=== PATIENT | male | born 1975 | race Caucasian/White ===

== ENCOUNTER 2017-03-28 15:07 | Inpatient (IN) | payer MEDICARE, MEDICAID ==
--- NOTE | 2017-03-28 15:33 | ED ---
General Adult HPI - General Chief complaint: Psychiatric Symptoms Stated complaint: hand lac/psych med check Time Seen by Provider: 03/28/17 15:21 Source: patient, RN notes reviewed Mode of arrival: ambulatory Limitations: no limitations - History of Present Illness Initial comments: The patient is a 41-year-old male who presents emergency room today with chief complaint of laceration to the left thumb that occurred earlier today. He does admit that he cut it on a glass bottle. Patient states that he was at [facility] talking to his cigar head puncher who brought him here to the emergency room. Patient states he does not want have a tetanus shot. He states he "does not believe in it". Patient denies any homicidal, suicidal thoughts or plans. His cigar head puncher was hoping to have him evaluate by psych to have medications possibly adjusted. Patient states he does not want be evaluated by psych. Patient denies any other complaints or symptoms. Patient denies any recent fever, chills, shortness of breath, chest pain, back pain, abdominal pain, nausea or vomiting, numbness or tingling, dysuria or hematuria, constipation or diarrhea, headaches or visual changes, or any other complaints. - Related Data Home Medications Medication Instructions Recorded Confirmed cloZAPine [Clozaril] 100 mg PO HS 03/28/17 03/28/17 fluPHENAZine DECANOATE [Prolixin 50 mg IM Q7D 03/28/17 03/28/17 Decanoate] Allergies Allergy/AdvReac Type Severity Reaction Status Date / Time clozapine [From Clozaril] Allergy Unknown Verified 03/28/17 15:19 paliperidone [From Invega] Allergy Unknown Verified 03/28/17 15:19 Review of Systems ROS Statement: Those systems with pertinent positive or pertinent negative responses have been documented in the HPI. ROS Other: All systems not noted in ROS Statement are negative. Past Medical History Past Medical History: Unable to Obtain Additional Past Medical History / Comment(s): Pt uncooperative /c Admission, refused to give info. History of Any Multi-Drug Resistant Organisms: None Reported, Unobtainable Past Surgical History: Unable to Obtain Additional Past Surgical History / Comment(s): Pt uncooperative /c Admission, refused to give info. Past Anesthesia/Blood Transfusion Reactions: Unable to Obtain Additional Past Anesthesia/Blood Transfusion Reaction / Comment(s): Pt uncooperative /c Admission, refused to give info. Past Psychological History: Bipolar, Schizoaffective Disorder Smoking Status: Former smoker Past Alcohol Use History: Daily Past Drug Use History: Unable to Obtain General Exam - General Exam Comments Initial Comments: General: The patient is awake and alert, in no distress, and does not appear acutely ill. Neck: The neck is supple, there is no tenderness or JVD. Cardiovascular: There is a regular rate and rhythm. No murmur, rub or gallop is appreciated. Respiratory: Lungs are clear to auscultation, respirations are non-labored, breath sounds are equal. No wheezes, stridor, rales, or rhonchi. Musculoskeletal: Full range of motion. Sensation intact. Pulses equal bilaterally 2+ per strength 5/5. Neurological: A&O x 3. CN II-XII intact, There are no obvious motor or sensory deficits. Coordination appears grossly intact. Speech is normal. Skin: Skin is warm and dry and no rashes or lesions are noted. Limitations: no limitations Course Vital Signs 03/28/17 15:17 Temperature 97 F L Pulse Rate 83 Respiratory 16 Rate Blood Pressure 134/98 O2 Sat by Pulse 97 Oximetry - Reevaluation(s) Reevaluation #1: 03/28/17 15:43 Patient's cigar head puncher at bedside and states that she would like him to be evaluated by psych services. She is willing to petition the patient. At this time patient is agreeable to wait for evaluation. Medical Decision Making - Medical Decision Making Patient has been evaluated here in the emergency room by mental health. They do recommend admission. Patient has been petitioned by his cigar head puncher and physician Cert was performed by ER attending Dr Mosley. - Lab Data Lab Results 03/28/17 Range/Units 15:50 Urine Opiates Screen Not Detected (NotDetected) Ur Oxycodone Screen Not Detected (NotDetected) Urine Methadone Screen Not Detected (NotDetected) Ur Propoxyphene Screen Not Detected (NotDetected) Ur Barbiturates Screen Not Detected (NotDetected) U Tricyclic Antidepress Not Detected (NotDetected) Ur Phencyclidine Scrn Not Detected (NotDetected) Ur Amphetamines Screen Not Detected (NotDetected) U Methamphetamines Scrn Not Detected (NotDetected) U Benzodiazepines Scrn Not Detected (NotDetected) Urine Cocaine Screen Not Detected (NotDetected) U Marijuana (THC) Screen Detected H (NotDetected) Disposition Clinical Impression: Laceration, Schizoaffective disorder Disposition: TRANSFER TO PSYCH HOSP/UNIT Condition: Stable Additional Instructions: Please watch for signs of infection. Please return to the emergency room for any other concerns or complications. Referrals: Bryan Joseph MD [Primary Care Provider] - 1-2 days Time of Disposition: 17:12
[2017-03-28] MEDS ORDERED: LORazepam 1 MG TAB PO PRN (18:15)
[2017-03-28] MEDS ORDERED: ACETAMINOPHEN TAB 325 MG TAB PO PRN (18:15)
[2017-03-28] MEDS ORDERED: MAGNESIUM HYDROXIDE 2,400 MG/10 ML CUP PO PRN (18:15)
[2017-03-28] MEDS ORDERED: ZIPRASIDONE 20 MG VIAL IM PRN (18:15)
[2017-03-28] MEDS ORDERED: MAG HYDROX/AL HYDROX/SIMETH 30 ML CUP PO PRN (18:15)
[2017-03-28] MEDS: TRIHEXYPHENIDYL 2 MG TAB PO SCH (20:50)
[2017-03-29] MEDS ORDERED: MENTHOL (NICE) LOZENGE MUCOUS MEM PRN (08:26)
[2017-03-29 08:33] LABS: Basophils % (A) 0 %; CH 29.7; CHCM 33.8; Eosinophils # (A) 0.1 k/uL (0-0.7); Eosinophils % (A) 1 %; HCT 47.7 % (39.0-53.0); HDW 2.62; HGB 16.1 gm/dL (13.0-17.5); Luc % (Auto) 2; Lymphocytes # (A) 2.3 k/uL (1.0-4.8); Lymphocytes % (A) 23 %; MCH 29.7 pg (25.0-35.0); MCHC 33.7 g/dL (31.0-37.0); MCV 88.2 fL (80.0-100.0); Mean Platelet Volume 6.6; Monocytes # (A) 0.5 k/uL (0-1.0); Monocytes % (A) 5 %; Neutrophils % (A) 69 %; RDW 11.7 % (11.5-15.5); WBC 10.1 k/uL (3.8-10.6); WBC (Perox) 9.63
[2017-03-29 08:35] LABS: ALT 46 U/L (21-72); AST 23 U/L (17-59); Alkaline Phosphatase 59 U/L (38-126); Anion Gap 12 mmol/L; Bilirubin, Delta 0.1 mg/dL (0.0-0.2); Blood Urea Nitrogen 12 mg/dL (9-20); Calcium 9.2 mg/dL (8.4-10.2); Carbon Dioxide 26 mmol/L (22-30); Chloride 102 mmol/L (98-107); Glucose 90 mg/dL (74-99); Non-African American GFR(MDRD) >60 (>60 ml/min/1.73 sqM); Potassium 4.9 mmol/L (3.5-5.1); Sodium 140 mmol/L (137-145); Total Bilirubin 0.2 mg/dL (0.2-1.3); Total Protein 7.1 g/dL (6.3-8.2)
[2017-03-29] MEDS: TRIHEXYPHENIDYL 2 MG TAB PO SCH ×2 (09:04→20:25)
--- NOTE | 2017-03-29 15:02 | HP ---
HISTORY AND PHYSICAL DATE OF SERVICE: 03/29/2017 IDENTIFYING DATA: This patient is a 41-year-old, single male, who was admitted to the mental health unit through the emergency room on a petition for acute symptoms of psychosis and agitated behavior. HISTORY OF PRESENT ILLNESS: The patient presents with a petition completed by his [facility] logging truck driver stating "while in [facility] today yelled Dr. Mosley needs to and profanities." Justice through a glass bottle in [facility] and cut his hand. He yelled at Legal Manager in [facility], in vehicle, then jumped out of vehicle while still moving. Staff questioning whether Fortunato is taking his Clozaril. Justice has stated he has been using crack cocaine two weeks prior. The patient is well known to this service, he has a history of numerous prior admissions. He does carry a diagnosis of schizoaffective disorder, bipolar type. The patient states that he does not understand why Dr. Mosley would prescribe Clozaril to him when it is "so bad for my body." He states that he has had anxiety running up and down his arms. He has felt agitated and is too sleepy because of the Clozaril. At this point, he is refusing to take it. Clearly, the patient presented with symptoms of agitation and feeling persecuted. Today he denies having all symptoms and would like to be discharged today. He has been compliant with getting Prolixin injections 50 mg every week. He states he would like to continue on that medication alone and refuses anything additional. He is reporting no suicidal or homicidal thoughts. He is endorsing no racing thoughts. He endorses no auditory or visual hallucinations. He endorses no delusional content. The patient is not a valid historian. PAST PSYCHIATRIC HISTORY: The patient has had numerous inpatient psychiatric admissions. The last on this unit was May of 2014 under the care of Dr. Nuñez. He has been admitted to other facilities. He is engaged in outpatient services with [facility]. Again, he is on Prolixin Decanoate as noted. He has been on Risperdal Consta, Invega Sustenna. He does not recall if he has been on Abilify Maintena. He endorses no history of suicide attempts. PAST MEDICAL HISTORY: None reported. ALLERGIES: He states INVEGA and although not a true allergic reaction, he would like to list CLOZARIL as an allergy. CHEMICAL DEPENDENCY HISTORY: He reports using no alcohol. He has been using marijuana, but states he quit last week. It was in his urine drug screen. There is record of him using cocaine 2 weeks ago. He states that was a single use and he does not intend to use it again. He has never been placed in residential treatment for chemical dependency reasons. FAMILY PSYCHIATRY HISTORY: Unknown. FAMILY CHEMICAL DEPENDENCY HISTORY: Unknown. SOCIAL HISTORY: The patient is 41 years old. He is single, he has no children. He resides alone in an apartment. His mother and Mr. Jak Gonzalez are co-guardians. The patient has a high school education. He currently is on a social security disability income. No abuse history previously documented. LEGAL HISTORY: Unknown. STRENGTHS: Income, housing, support from guardians. WEAKNESSES: Noncompliance with medications. Acute symptoms of psychosis and packing psychosocial function. Intellect average. MENTAL STATUS EXAM: The patient is a male, appearing his stated age. He is dressed in oversize clothing. He has a disheveled appearance. His hair is not combed, his suero is unkempt. Eye contact is appropriate. Speech is fluent. He is mildly pressured at times. He is demonstrative when speaking in terms of speaking. He reports feeling frustrated. Affect is irritable. He is not a valid historian. He is minimizing symptoms and under reporting. He denies having any symptoms of psychosis or racing thoughts. He presents appearing to have paranoid and persecutory thoughts. Chronically, he has mandaen preoccupation but does not speak of that today. Insight and judgment are impaired. We were unable to pursue any cognitive testing today. He is oriented to person and place. He demonstrates no verbal or physical aggressiveness during the session No abnormal involuntary movements observed. IMPRESSION: 1. Schizoaffective disorder, bipolar type. Rule out cannabis use disorder. 2. Psychosocial dysfunction due to acute symptoms of psychosis. PLAN: The patient has been admitted to the mental health unit involuntarily. I have completed a second clinical certificate. He is still being offered his Clozaril, Artane but he is refusing the medication. He does received Prolixin and Decanoate. It appears that is due again early next week. He is not amenable to other medications suggestions today. We will need to confer with Dr. Mosley his outpatient psychiatrist regarding possible medication changes. The patient will be seen by Internal Medicine for routine history and physical exam. Social Work will meet with the patient to complete a psychosocial assessment. We will monitor him for safety. Encourage his participation in the milieu. We will provide reality orientation when possible. LANDON / RAD: [id number] /
[2017-03-29] MEDS ORDERED: cloZAPine 100 MG TAB PO SCH (21:00)
[2017-03-30] MEDS: TRIHEXYPHENIDYL 2 MG TAB PO SCH ×2 (08:45→20:41)
[2017-03-30] MEDS: AMOXIC-POT CLAV 875-125MG 1 EACH TAB PO SCH ×3 (11:27→21:53)
--- NOTE | 2017-03-30 11:45 | HP ---
HISTORY AND PHYSICAL DATE OF ADMISSION: 03/28/17 CHIEF COMPLAINT: Depression and schizoaffective disorder. HISTORY OF PRESENT ILLNESS: This is a 41-year-old male with history of psychiatric disorder including schizoaffective disorder, depression, anxiety, presents to the hospital with worsening symptoms. Patient is noncompliant with his medication, was admitted to the psych floor for further evaluation. Currently, he is complaining of right ear pain that started a couple days ago and seems like it is getting worse. Patient denies fever or chills, recent upper respiratory infection and stated that he never had ear infection before. REVIEW OF SYSTEMS: All 14 systems reviewed and negative except as above. HOME MEDICATION: Reviewed and confirmed with the patient. The patient is not compliant with his medications, not taking anything at this point. PAST MEDICAL HISTORY: 1. Schizoaffective disorder. 2. Anxiety. 3. Depression. ALLERGIES: INVEGA. CLOZARIL. FAMILY HISTORY: Reviewed and negative. SOCIAL HISTORY: Patient denies alcohol, tobacco, or drug abuse but his urine drug screen showed marijuana. PHYSICAL EXAMINATION: Vital signs reviewed and stable. General as his stated age. No acute distress. HEENT positive for right ear membrane bulging and redness and normal otherwise examination. NECK: Supple. No masses. No thyromegaly. Heart normal S1, S2. LUNGS: Clear to auscultation bilaterally. ABDOMEN: Soft, nontender, soft bowel sounds all 4 quadrants. Lower extremity no edema. Neuro/psych: Alert, oriented x3, no focal deficits. Cranial nerves 2-12 intact. IMAGING AND LABS: CBC showed normal finding. Chemistry showed normal findings. Liver function tests within normal limits. Urine drug screen was positive for marijuana. ASSESSMENT AND PLAN: 1. Right otitis media. I would like to start Augmentin 875 twice daily for 7 days and follow up the patient clinically. 2. Schizoaffective disorder per your recommendation. 3. Marijuana abuse. We will consult the patient regarding cessation during this hospital stay. MMODL / IJN: [id number] /
--- NOTE | 2017-03-30 15:42 | P.PN ---
Progress Note - Text Interval history: The patient is found in the hallway he follows me to an interview room. He reports his mood is stable he asked to be discharged today. He again lacks insight into his symptoms of psychosis precipitating this admission. He states he does not want to claws role offered to him again as he will never take it. I tried to engage in a conversation regarding the claws role highlighting its benefits. We discussed that he will require some medication change but he is refusing at this time. He feels he was doing well with just the Prolixin injections. Mental status exam: The patient is a male he is quite disheveled he is wearing the same oversize clothing. Hygiene grooming impaired. His fingernails are noticeably dirty. Eye contact is appropriate. He frequently changes position while seated in the chair. He does have spontaneous speech is nonpressured today. He continues to underreport symptoms he denies having any symptoms of psychosis. He obviously lacks insight into the need for medication adjustment and continued hospitalization. He demonstrates no verbal or physical aggressiveness. Affect is constricted. He is reporting no suicidal or homicidal ideation. Plan: The patient will continue on his current medications. He is not amenable to continuing use of claws role. We will need to have a discussion with his outpatient psychiatrist regarding possibilities. The patient is willing to continue the Prolixin decanoate. Vital signs reviewed. He is encouraged to participate in the milieu we will monitor him for safety.
[2017-03-30 16:19] LABS: Appearance,Urine Clear (Clear); Bilirubin,Urine Negative (Negative); Glucose,Urine (UA) Negative (Negative); Ketones,Urine Negative (Negative); Leukocyte Esterase,Urine Negative (Negative); Nitrite,Urine Negative (Negative); PH, Urine 6.5 (5.0-8.0); Protein,Urine Negative (Negative); Specific Gravity,Urine 1.005 (1.001-1.035); UA Billing (MACRO vs. MICRO) CHEM; Urobilinogen,Urine <2.0 mg/dL (<2.0)
[2017-03-31 09:10] LABS: Norclozapine <25 ng/mL (200-700)
[2017-03-31] MEDS: TRIHEXYPHENIDYL 2 MG TAB PO SCH ×2 (09:31→20:22)
[2017-03-31] MEDS: AMOXIC-POT CLAV 875-125MG 1 EACH TAB PO SCH ×2 (09:32→21:18)
--- NOTE | 2017-03-31 12:00 | P.PN ---
Progress Note - Text Interval History: Patient is a 41-year-old male who was seen today after being admitted on a petition due to becoming upset in the [employer] cutting his hand and bleeding over the produce in the store. Patient has apparently not been eating well at home, only eating fruit and vegetables feeling that other foods were being poisoned. Patient had recently been started on Prolixin and Clozaril. Patient was begun on Clozaril the beginning of February but recently he states that he has not been taking it due to its wearing him out and he feels like he is dying on it. He also reported to me that the spirits were leaving his body. Patient denied any auditory or visual hallucinations and denied any paranoid ideation. He denied arguing with his medical case manager and also states that he had not threatened doctor at the clinic as he had not been there to see him for the last week and half. Patient states that he used cocaine 2 weeks ago and used marijuana 2 weeks ago but through his pipe out. Patient states that he will not restart the Clozaril. Patient has been living on his own. Patient is also part of the act team Mental Status: Appearance/Attitude: Patient's close are soiled, makes intermittent eye contact and is cooperative. Behavior: Patient does not display any psychomotor agitation or retardation. Speech/Language: Patient's speech is nonspontaneous, he responds only to my questions and he is coherent. Thought Process: Patient is goal-directed there is no evidence of circumstantial or tangential thought looses associations or flight of ideas. Thought Content: Patient denies any current auditory or visual hallucinations and no paranoid or delusional ideation was elicited. Patient states that he has not been taking the Clazuril because it made him feel like he was dying and wearing him out as well as he told me that the spirits were leaving his body and was affecting his left arm. Patient states that he is sleeping fine. Suicidal/Homicidal Ideation: Patient denies any current suicidal or homicidal ideation. Sensorium/Cognition: Patient is alert and oriented to person, place, time and his memory is grossly intact. Mood/Affect: Patient's mood was restricted and his affect was blunted. Insight/Judgement: Patient's insight and judgment are poor. Assessment: Patient was admitted due to not taking his closet role as well as having some paranoid ideation regarding his food being poisoned. Patient is refusing to continue with Clozaril but states that the Prolixin is fine. Patient has been receiving Prolixin to Bev 50 mg weekly since March 01 been on Risperdal Consta prior to that. Patient complaining that the Clazuril caused him to feel like he is dying in the spirits were leaving his body. Patient has not been hospitalized since 2013 and in team treatment meeting his medication history was reviewed. Plan: I will not patient will continue on Prolixin Decanoate 50 mg his next injection is due tomorrow, he is refusing to take Clozaril and Artane. From reviewing his medication history from [facility] but appears that patient has not been tried on Abilify will discuss with patient if this is something he wishes to consider.Patient requires hospitalization to treat his psychotic symptoms.
[2017-04-01] MEDS: AMOXIC-POT CLAV 875-125MG 1 EACH TAB PO SCH ×2 (08:57→20:51)
[2017-04-01] MEDS: TRIHEXYPHENIDYL 2 MG TAB PO SCH (08:59)
[2017-04-01] MEDS ORDERED: fluPHENAZine DECANOATE 25 MG/ML 5ML MDV IM SCH (09:00)
--- NOTE | 2017-04-01 13:37 | P.PN ---
Progress Note - Text Interval History: Patient is a 41-year-old male who was seen today and he reports that he was is doing fine. He reports that he got upset in the store due to staff asking him to buy things that he doesn't like to eat. Patient states that he does not wish to restart the Clozaril. Patient admitted to me that he had not been taking the evening dose of the Clozaril. Patient requested that the evening dose of Artane be discontinued because it made him too anxious last evening. Patient states that he would take Zyprexa but would not consider any other medication. Mental Status: Appearance/Attitude: Patient was dressed in a hospital gown, at times stares intently and is cooperative. Behavior: Patient does not display any psychomotor agitation or retardation. Speech/Language: Patient's speech is spontaneous, normal volume and rhythm and he is coherent. Thought Process: Patient is goal-directed, no evidence of loose associations. Thought Content: Patient denies any auditory or visual hallucinations and no delusions or paranoid ideation could be elicited. Patient reported that he felt anxious and couldn't sleep well last evening and feels it was secondary to the Artane. Patient reported that he is appetite is good. Suicidal/Homicidal Ideation: Patient denies any current suicidal or homicidal ideation. Sensorium/Cognition: Patient is alert and oriented to person, place, time and his memory is grossly intact. Mood/Affect: Patient's mood is restricted and his affect is blunted Insight/Judgement: Patient's insight and judgment are fair to poor Assessment: Patient and I discussed his lack of compliance with medication and he agreed that he had not been taking the evening doses of Clozaril because he did not like the way it made him feel. Patient and I also discussed his reaction in the grocery store when he felt he was being pressured by case management to buy food that he didn't want to eat. Patient complained of side effects from Olivia taking Artane at bedtime and states that he will only consider the addition of Zyprexa to his medication. Plan: Patient will continue on Prolixin to [place] 50 mg and will receive a dose today, he is receiving this on a weekly basis. His Artane was reduced to 5 mg in the morning at the patient's request. Patient will start Zyprexa Zydis 5 mg at 5 PM to see how he does with the medication and he discussed this with the liaison from [facility] and was agreeable to this plan. Will observe the patient for several days and consider discharge should he tolerate the Zyprexa Zydis without side effects. Patient was agreeable with this plan.
[2017-04-01] MEDS: OLANZapine ODT 5 MG TAB PO SCH (16:41)
[2017-04-02] MEDS: TRIHEXYPHENIDYL 2 MG TAB PO SCH (08:11)
[2017-04-02] MEDS: AMOXIC-POT CLAV 875-125MG 1 EACH TAB PO SCH ×2 (08:11→20:02)
--- NOTE | 2017-04-02 13:12 | P.PN ---
Progress Note - Text Interval History: Patient is a 41-year-old male who was seen today and reports that he slept better last evening. Patient reports no side effects from the Zyprexa that he took yesterday late afternoon. He states that he is not hearing voices denies any paranoid ideation and states he is not feeling suicidal. Patient states that he is spending time in his room and has not been attending groups or activities. Mental Status: Appearance/Attitude: Patient is dressed in a hospital gown, makes good eye contact and is cooperative. Behavior: Patient does not display any psychomotor agitation or retardation. Speech/Language: Patient's speech is spontaneous, normal volume and rhythm and is coherent. Thought Process: Patient is goal directed, and there is no evidence of circumstantial or tangential thought loose associations or flight of ideas. Thought Content: Patient denies any auditory or visual hallucinations and no paranoid or delusional ideation was elicited. Patient states that he is sleeping and eating well and states with the Zyprexa he slept better last evening. Patient reports he is staying in his room and reports no side effects from his medication. Suicidal/Homicidal Ideation: Patient denies any current suicidal or homicidal ideation. Sensorium/Cognition: Patient is alert and oriented to person, place, and time and his memory is grossly intact Mood/Affect: Patient's mood is restricted and his affect is blunted. Insight/Judgement: Patient's insight and judgment are limited. Assessment: Patient took the Zyprexa Zydis yesterday late afternoon reports that he slept better, he is denying any auditory hallucinations no delusions were elicited. Patient states that he is staying in his room as he does not want to attend groups or activities. Patient continues to ask when he will be discharged. Patient is not reporting any side effects from the medication. Plan: Patient received Prolixin to [place] 50 mg IM on April 01 and continues on Artane 5 mg in the morning and Zyprexa Zydis 5 mg at 5 PM. Patient can be discharged and several days.
[2017-04-02] MEDS: OLANZapine ODT 5 MG TAB PO SCH (16:38)
[2017-04-03 06:54] VITALS: BP 127/72; PULSE 86; RESP 18; TEMP 97.5
[2017-04-03] MEDS: AMOXIC-POT CLAV 875-125MG 1 EACH TAB PO SCH (07:56)
[2017-04-03] MEDS: TRIHEXYPHENIDYL 2 MG TAB PO SCH (07:56)
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
[2017-04-03] MEDS: OLANZapine ODT 5 MG TAB PO SCH (16:06)
== END 2017-04-03 16:19 | disposition home or self-care (01) | DRG 885 ==
LOC: EC 15:07 → EEVIPCON 15:07 → 3MHU 18:12
PROVIDERS: ADMIT Psychiatry & Neurology Psychiatry; ATTEND Psychiatry & Neurology Psychiatry
DX: F25.0 Schizoaffective disorder, bipolar type (principal); Z91.14 Patient's other noncompliance with medication regimen; F41.9 Anxiety disorder, unspecified; H66.91 Otitis media, unspecified, right ear; F12.10 Cannabis abuse, uncomplicated; S61.012A Laceration without foreign body of left thumb without damage to nail, initial encounter; Z79.899 Other long term (current) drug therapy; Z88.8 Allergy status to other drugs, medicaments and biological substances; Z87.891 Personal history of nicotine dependence
CPT/HCPCS: 80053; 80159; 80306; 81003; 82075; 82248; 84443; 85025; 99285

== ENCOUNTER 2018-12-03 20:56 | Emergency (ER) | payer MEDICARE, OTHER ==
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
[2018-12-03 23:09] VITALS: BP 140/95; PULSE 75; RESP 18; TEMP 98
== END 2018-12-03 23:09 | disposition home or self-care (01) ==
LOC: EC 20:56
DX: S01.81XA Laceration without foreign body of other part of head, initial encounter (principal); F17.200 Nicotine dependence, unspecified, uncomplicated; Z88.8 Allergy status to other drugs, medicaments and biological substances; Y00.XXXA Assault by blunt object, initial encounter; Y92.009 Unspecified place in unspecified non-institutional (private) residence as the place of occurrence of the external cause
CPT/HCPCS: 12013; 99283

== ENCOUNTER 2021-03-16 15:59 | Inpatient (IN) | payer MEDICARE ==
--- NOTE | 2021-03-16 16:52 | ED ---
General Adult HPI - General Chief complaint: Psychiatric Symptoms Stated complaint: Mental Health-petition Time Seen by Provider: 03/16/21 16:40 Source: patient Mode of arrival: ambulatory Limitations: no limitations - History of Present Illness Initial comments: Dictation was produced using [employer] dictation software. please excuse any grammatical, word or spelling errors. 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 There was allegedly pickup order regarding the patient. Patient was in the has been agitated and making suicidal statements. He supposedly owns a firearm. Patient denies any complaints at this time. He is not suicidal or homicidal. No visual auditory hallucinations. Patient's [place] has psychiatric history. The ROS documented in this emergency department record has been reviewed and confirmed by me. Those systems with pertinent positive or negative responses have been documented in the HPI. All other systems are other negative and/or noncontributory. PHYSICAL EXAM: General Impression: Alert and oriented x3, not in acute distress HEENT: Normocephalic atraumatic, extra-ocular movements intact, pupils equal and reactive to light bilaterally, mucous membranes moist. 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 Vital signs upon arrival are within acceptable limits. Patient evaluated by EPS and will be admitted to inpatient psychiatry. - Related Data Previous Rx's Medication Instructions Recorded Amoxic-Pot Clav 875-125Mg 1 each PO Q12HR #5 tab 04/03/17 [Augmentin 875-125] OLANZapine ODT [ZyPREXA Zydis] 5 mg PO DAILY@1700 #14 tab 04/03/17 Trihexyphenidyl [Artane] 5 mg PO DAILY #35 tab 04/03/17 fluPHENAZine decanoate [Prolixin 50 mg IM Q7D 7 Days 04/03/17 Decanoate] Allergies Allergy/AdvReac Type Severity Reaction Status Date / Time clozapine [From Clozaril] Allergy Unknown Verified 03/16/21 16:34 paliperidone [From Invega] Allergy Unknown Verified 03/16/21 16:34 Review of Systems ROS Statement: Those systems with pertinent positive or pertinent negative responses have been documented in the HPI. ROS Other: All systems not noted in ROS Statement are negative. Past Medical History Past Medical History: No Reported History Additional Past Medical History / Comment(s): denies History of Any Multi-Drug Resistant Organisms: None Reported Past Surgical History: No Surgical Hx Reported Additional Past Surgical History / Comment(s): Pt uncooperative /c Admission, refused to give info. Past Anesthesia/Blood Transfusion Reactions: Unable to Obtain Additional Past Anesthesia/Blood Transfusion Reaction / Comment(s): Pt uncooperative /c Admission, refused to give info. Past Psychological History: Bipolar, Schizoaffective Disorder Smoking Status: Former smoker Past Alcohol Use History: Daily Past Drug Use History: Cocaine General Exam Limitations: no limitations Course Vital Signs 03/16/21 16:31 Temperature 98.1 F Pulse Rate 90 Respiratory 16 Rate Blood Pressure 118/79 O2 Sat by Pulse 95 Oximetry Medical Decision Making - Lab Data Lab Results 03/16/21 03/16/21 Range/Units 17:24 17:24 Urine Opiates Screen Not Detected (NotDetected) Ur Oxycodone Screen Not Detected (NotDetected) Urine Methadone Screen Not Detected (NotDetected) Ur Propoxyphene Screen Not Detected (NotDetected) Ur Barbiturates Screen Not Detected (NotDetected) U Tricyclic Antidepress Not Detected (NotDetected) Ur Phencyclidine Scrn Not Detected (NotDetected) Ur Amphetamines Screen Not Detected (NotDetected) U Methamphetamines Scrn Not Detected (NotDetected) U Benzodiazepines Scrn Not Detected (NotDetected) Urine Cocaine Screen Not Detected (NotDetected) U Marijuana (THC) Screen Detected H (NotDetected) Coronavirus (PCR) Not Detected (Not Detectd) Disposition Clinical Impression: Suicidal ideation Disposition: ADMITTED IP TO THIS HOSP Condition: Fair Referrals: None,Stated [Primary Care Provider] - 1-2 days
[2021-03-16 17:59] LABS: Amphetamine Screen,Urine Not Detected (NotDetected); Barbiturate Screen,Urine Not Detected (NotDetected); Benzodiazepines Screen,Urine Not Detected (NotDetected); Cocaine Screen,Urine Not Detected (NotDetected); Methadone Screen, Urine Not Detected (NotDetected); Opiate Screen,Urine Not Detected (NotDetected); Oxycodone Screen, Urine Not Detected (NotDetected); Phencyclidine Screen,Urine Not Detected (NotDetected); Tricyclic Antidepressant,Urine Not Detected (NotDetected); Urn Cannabinoid Scrn Detected (NotDetected)
[2021-03-16] MEDS ORDERED: LORazepam 1 MG TAB PO PRN (20:09)
[2021-03-16] MEDS ORDERED: MAG HYDROX/AL HYDROX/SIMETH 30 ML CUP PO PRN (20:09)
[2021-03-16] MEDS ORDERED: ACETAMINOPHEN TAB 325 MG TAB PO PRN (20:09)
[2021-03-16] MEDS ORDERED: MAGNESIUM HYDROXIDE 2,400 MG/10 ML CUP PO PRN (20:09)
[2021-03-16] MEDS ORDERED: LORazepam 2 MG/ML INJ IM PRN (20:14)
[2021-03-17] MEDS: NICOTINE 14MG/24HR PATCH TRANSDERM SCH (08:30)
--- NOTE | 2021-03-17 11:19 | P.HP ---
Psychiatric H&P - . H&P Date: 03/17/21 History & Physical: IDENTIFYING DATA: German is a 45-year-old single male who has a chronic and persistent mental illness. HISTORY OF PRESENT ILLNESS: The Sales And Marketing Manager's Department brought him to the [facility] [place] for noncompliance under a continuing order for mental health treatment. On the accompanying noncompliance form his pillowcase turner wrote: "Justice has been increasingly agitated. He is not caring for his hygiene. Per medical radiation therapist. Dr. Mosley Justice should be picked up for screening for admission as he is agitated to the point of making threats to "cut his head off" or shoot him. Justice believes that he is not mentally ill but rather he is cursed he does not need medications." According to the patient obtained by the EPS nurse, he was with the ACT team yesterday and made threats to get a gun and kill the staff." Alicia from the ACT team said that he was acting unhinged yesterday. Note that he does not own a gun and does not have access to a firearm. Justice would not get out of bed for the interview but otherwise was pleasant and cooperative. He explained that he was upset with his public guardian because the guardian had not returned his telephone calls. He acknowledged it was angry but expects requests over how he expressed his anger. He denied that he he had intended to harm staff or his guardian. His only other concern was discharge. He would not talk about such psychotic symptoms such as hallucinations, paranoia, delusional beliefs or thought disturbances (ideas reference, thought insertion, thought broadcasting etc.). He denied feeling depressed or having thoughts of or suicide. He denied use of drugs with the exception of marijuana. He denied daily marijuana use because she cannot afford to use marijuana daily. He denied use of alcohol. His UDS was positive only for marijuana and his breath alcohol was 0 on presentation to the ED. PAST PSYCHIATRIC HISTORY: He has a history of a schizoaffective schizophrenia disorder with multiple hospitalizations and treatment with various antipsychotic medications including clozapine. He is enrolled in the ACT program due to the chronicity and severity of his mental illness. He is currently treated with Prolixin 50 mg IM weekly due to the history of noncompliance with psychotropic medications. According to medical record and he has had at least 50 prior psychiatric hospitalizations. PAST MEDICAL HISTORY: He has no history of major medical problems ALLERGIES: He reports clozapine and paliperidone is how she suspect these are not true ALLERGIES; rather adverse reactions. SUBSTANCE USE HISTORY: He is guarded about his substance use history. The medical record notes history of use of marijuana and alcohol. He smokes tobacco. FAMILY PSYCHIATRIC/SUBSTANCE USE HISTORY: Unknown LEGAL HISTORY: He denied any legal problems SOCIAL HISTORY: He is single and has no children. He resides alone in an apartment. He has legal guardian. He is unemployed and receives social security disability MENTAL STATUS EXAM: He presented as a large 45-year-old male who was irritable and minimally cooperative. He would not get out of bed for the interview. He made eye contact and appeared to attend to the exam. He had no prominent prominent physical abnormalities. He had a blunted facial expression. He showed psychomotor retardation but no abnormal involuntary movements. His speech was spontaneous with normal rate, rhythm and volume. His affect was angry irritable but not inappropriate overly intense. He denied suicidal ideation and wishes. He denied homicidal ideation. He expressed feelings of helplessness regarding this hospitalization but denied feeling hopeless or worthless. He did not express clear ideas reference, paranoid ideation or delusions. His thinking was concrete and associations were organized. He denied hallucinations and did not appear to be responding to internal stimuli. STRENGTHS: Physical health, stable housing, stable income, strong mental health supportive services WEAKNESSES: Chronic and persistent mental illness, history of poor compliance with mental health treatment IMPRESSION: He is a 45-year-old single male who has a chronic and persistent mental illness, chronic marijuana use and recurrent resistance to treatment of his mental illness. He presented to the [facility] [place] involuntarily under a chronic treatment order for increasing irritability and threats of violence. He has been treated with weekly injections supplemented long-acting antipsychotic because of recurrent problems with compliance. He is irritable and minimally cooperative but expresses regret over his statements that led to this hospitalization. He is shown no aggressive behavior since admission to the unit. He should best be treated inpatient basis with a combination of psychopharmacology and multimodal therapy. PRINCIPLE DIAGNOSIS: Schizoaffective disorder bipolar type, cannabis use disorder, tobacco use, poor compliance with mental health treatment RECOMMENDATION: Admit to the psychiatric unit. Safety precautions. A medicine for initial physical exam and medical history. mend worker completed initial psychosocial assessment coordinate discharge and aftercare. Continue Prolixin Decanoate 50 mg IM weekly; his next injection is due on 03/19/2021. Habitrol for smoking cessation. Encourage participation in therapeutic groups and activities. Evaluate clinical status and response to treatment daily basis. Allergies Allergy/AdvReac Type Severity Reaction Status Date / Time clozapine [From Clozaril] Allergy Unknown Verified 03/16/21 21:20 paliperidone [From Invega] Allergy Unknown Verified 03/16/21 21:20 Vital Signs Temp 96.5 F L 03/17/21 06:11 Pulse 52 L 03/17/21 06:11 Resp 18 03/17/21 06:11 BP 133/67 03/17/21 06:11 Pulse Ox 95 03/16/21 16:31 Intake & Output 03/16/21 03/17/21 03/17/21 18:59 06:59 18:59 Weight 102.058 kg 102.058 kg Laboratory Last Values Urine Opiates Screen Not Detected (NotDetected) 03/16/21 17:24 Ur Oxycodone Screen Not Detected (NotDetected) 03/16/21 17:24 Urine Methadone Screen Not Detected (NotDetected) 03/16/21 17:24 Ur Propoxyphene Screen Not Detected (NotDetected) 03/16/21 17:24 Ur Barbiturates Screen Not Detected (NotDetected) 03/16/21 17:24 U Tricyclic Antidepress Not Detected (NotDetected) 03/16/21 17:24 Ur Phencyclidine Scrn Not Detected (NotDetected) 03/16/21 17:24 Ur Amphetamines Screen Not Detected (NotDetected) 03/16/21 17:24 U Methamphetamines Scrn Not Detected (NotDetected) 03/16/21 17:24 U Benzodiazepines Scrn Not Detected (NotDetected) 03/16/21 17:24 Urine Cocaine Screen Not Detected (NotDetected) 03/16/21 17:24 U Marijuana (THC) Screen Detected (NotDetected) H 03/16/21 17:24 Coronavirus (PCR) Not Detected (Not Detectd) 03/16/21 17:24 03/17/21 10:55
--- NOTE | 2021-03-18 00:22 | P.CONS ---
History of Present Illness - Reason for Consult Consult date: 03/17/21 medical eval Requesting physician: Randolph Pandya - Chief Complaint Acute psychosis - History of Present Illness 45-year-old male with history of schizophrenia Patient doesn't provide any meaningful history he reports that he was brought in by law enforcement and he doesn't know the reason he denies any visual or auditory hallucinations he denies any suicidal or homicidal ideation he currently denies any fevers chills upper respiratory infection symptoms chest pain or trouble breathing denies any abdominal pain nausea vomiting or changes in his bowel or urinary habits Review of Systems Pertinent positives as noted in HPI. All other systems were reviewed and are negative Past Medical History Past Medical History: No Reported History Additional Past Medical History / Comment(s): denies History of Any Multi-Drug Resistant Organisms: None Reported Past Surgical History: No Surgical Hx Reported Additional Past Surgical History / Comment(s): Pt uncooperative /c Admission, refused to give info. Past Anesthesia/Blood Transfusion Reactions: Unable to Obtain Additional Past Anesthesia/Blood Transfusion Reaction / Comm: Pt uncooperative /c Admission, refused to give info. Past Psychological History: Bipolar, Schizoaffective Disorder Smoking Status: Former smoker Past Alcohol Use History: Daily Past Drug Use History: Cocaine Additional Drug Use History / Comment(s): Pt. states used cocaine a couple weeks ago. Denies any other drugs but was positive for marijuana. - Past Family History family Family Medical History: No Reported History Medications and Allergies Home Medications Medication Instructions Recorded Confirmed Type fluPHENAZine decanoate [Prolixin 50 mg IM Q7D 7 Days 04/03/17 03/16/21 Rx Decanoate] Allergies Allergy/AdvReac Type Severity Reaction Status Date / Time clozapine [From Clozaril] Allergy Unknown Verified 03/16/21 21:20 paliperidone [From Invega] Allergy Unknown Verified 03/16/21 21:20 Physical Exam Vitals: Vital Signs Temp Pulse Resp BP 03/17/21 06:11 96.5 F L 52 L 18 133/67 Patient refuses physical exam of this time and asked to be left alone Assessment and Plan Assessment: Acute psychosis History of schizophrenia Management per psych Thank you for allowing us to participate in the care of this patient. We will follow peripherally. Do not hesitate to contact us with questions. Someone can be reached from the [facility] hospitalist group at all hours of the day at [phone].
[2021-03-18] MEDS: NICOTINE 14MG/24HR PATCH TRANSDERM SCH (08:28)
--- NOTE | 2021-03-18 12:44 | P.PN ---
Progress Note - Text Progress Note Date: 03/18/21 Clinical Problems: Schizoaffective disorder bipolar type, cannabis use disorder, tobacco use, poor compliance with mental health treatment Interim history: I reviewed the medical record and interviewed the patient. Medical consult appreciated. German's only concern was discharge. He aga in objected to the circumstances that led to this hospitalization. He denied the need for hospitalization and denied that he had homicidal intent or plan. He spends his time alone in his room usually in bed. He does not interact with staff or peers. He comes out for meals and medication. He does not attend therapeutic groups or activities. He slept 9 hours last night. Mental status exam: He presented casually groomed male who is laying in bed. He did not want to the office for the exam. He made eye contact and attended to the interview. He had a blunted facial expression. He is alert and oriented to person, place and time. Psychomotor retardation but no abnormal involuntary movements. His speech was spontaneous with normal rate, rhythm and volume. His affect was blunted but stable and appropriate. He denied suicidal ideation and wishes. He denied homicidal ideation. Feels helpless regarding this hospitalization but denied feeling hopeless or worthless. He did not ruminate about circumstances that this hospitalization. He did not express clear ideas reference, paranoid ideation or delusions. His thinking was concrete but his associations were coherent, logical and goal directed. He denied hallucinations did not appear to responding to internal stimuli. Assessment: He is chronically mentally ill and has a history of poor compliance with medications. He is had no episodes of behavioral dyscontrol since admission to the unit and has express no homicidal thoughts Plan: Consider discharge tomorrow. Safety precautions. Continue Prolixin Decanoate 50 mg IM weekly and Habitrol for smoking cessation. Ativan urine for agitation or aggression. Encourage some participation in therapeutic groups and activities. Evaluate clinical status response to treatment daily basis.
[2021-03-19] MEDS ORDERED: fluPHENAZine DECANOATE 25 MG/ML 5ML MDV IM SCH (09:00)
[2021-03-19] MEDS: NICOTINE 14MG/24HR PATCH TRANSDERM SCH (09:07)
--- NOTE | 2021-03-19 11:28 | P.PN ---
Progress Note - Text Progress Note Date: 03/19/21 Interval History: Patient was seen resting in bed and was directable and agreeable to speak with signwriter in his room., The patient continues to endorse homicidal ideation towards his guardian. The patient states that his guardian has not answered any of his calls and that his guardian is withholding funds from him. The patient reports that he would like to purchase a vehicle and to find a new place to live. He is otherwise not reporting any suicidal ideation, intention, and/or plan. He is currently not reporting any auditory or visual hallucinations. The patient did receive Prolixin decanoate this morning and is currently not reporting any significant side effects of the medication. As per chart review, the patient has been noted to be increasingly agitated and threatening over the past week. He made threats towards his ACT team about obtaining a firearm to kill staff. Mental Status Exam: General Appearance: Patient appears to be stated age is alert, directable, and cooperative. Slightly disheveled. Unkempt hair and suero. Behavior: Patient is calmly seated without any agitated behavior. Eye contact is intense. Psychomotor activity appears slow. Speech: Patient's speech is fluent and nonpressured. Mood/Affect: Mood is irritated. Affect is blunted. Suicidality/Homicidality: Patient denies having any suicidal ideation. He endorses homicidal ideation towards his guardian Jak Go. Perceptions: Patient denies any visual hallucinations and denies any auditory hallucinations Though content/process: There is no evidence of any delusional thought content and thought process is linear and goal-directed. Memory and concentration: AOX3, grossly intact for the purposes of this session Judgment and insight: Improving mildly Vital Signs Temp 96.5 F L 03/17/21 06:11 Pulse 52 L 03/17/21 06:11 Resp 18 03/17/21 06:11 BP 133/67 03/17/21 06:11 Pulse Ox 95 03/16/21 16:31 Assessment Schizoaffective disorder, bipolar type Cannabis use disorder Nicotine dependence Plan: -Patient continues to meet criteria for inpatient psychiatric admission for symptom stabilization and safety. -Medications: Prolixin decanoate 50 mg IM was administered today. Patient receives his medication weekly. We will need to coordinate with [facility] on target symptoms prior to the initiation of other medications. Consider the addition of Depakote or lithium for augmentation of his antipsychotic medication. -When necessary Ativan and Haldol for agitation/aggression. -NRT - nicotine patch -SW on board for discharge planning. Encouraged the patient to participate in milieu.
[2021-03-20] MEDS: NICOTINE 14MG/24HR PATCH TRANSDERM SCH (09:28)
--- NOTE | 2021-03-20 11:21 | P.PN ---
Progress Note - Text Progress Note Date: 03/20/21 Interval History: Patient was seen resting in bed and was directable and agreeable to speak with speech writer in his room. The patient is currently reporting that he spoke with his guardian and apologized to him. The patient maintains that he is apologetic and will not kill or harm his guardian. He denies any access to firearms or other weapons. He is currently denying any suicidal or homicidal ideation, intention, and/or plan. He is not reporting any auditory or visual hallucinations. He is not reporting any paranoia or other delusions. She did receive his Prolixin Decanoate yesterday and is not endorsing any significant side effects at this time. The patient is currently requesting to be discharged. As per discussion with staff, the patient does not appear to be at baseline as he continues to present with very intense and guarded affect. Mental Status Exam: General Appearance: Patient appears to be stated age is alert, directable, and cooperative. Slightly disheveled. Unkempt hair and suero. Behavior: Psychomotor activity is normal. Patient is lying in bed comfortably. Eye contact is intense. Speech: Patient's speech is fluent and nonpressured. Short and jazmine. Mood/Affect: Mood is "feeling ready to go." Affect is intense, guarded, and suspicious. Suicidality/Homicidality: Patient denies having any suicidal ideation. He denies any homicidal ideation today. Perceptions: Patient denies any visual hallucinations and denies any auditory hallucinations Though content/process: There is no evidence of any delusional thought content and thought process is linear and goal-directed. Memory and concentration: AOX3, grossly intact for the purposes of this session Judgment and insight: Improving mildly Vital Signs Temp 97.1 F L 03/20/21 06:16 Pulse 64 03/20/21 06:16 Resp 18 03/17/21 06:11 BP 140/91 03/20/21 06:16 Pulse Ox 95 03/16/21 16:31 Assessment Schizoaffective disorder, bipolar type Cannabis use disorder Nicotine dependence Plan: -Patient continues to meet criteria for inpatient psychiatric admission for symptom stabilization and safety. -Medications: Prolixin decanoate 50 mg IM weekly was administered yesterday. Will start lamictal 25 mg at bedtime for augmentation. -When necessary Ativan and Haldol for agitation/aggression. -NRT - nicotine patch -SW on board for discharge planning. Encouraged the patient to participate in milieu.
[2021-03-20] MEDS: lamoTRIgine 25 MG TAB PO SCH ×2 (21:38→21:47)
[2021-03-21] MEDS: NICOTINE 14MG/24HR PATCH TRANSDERM SCH (08:02)
--- NOTE | 2021-03-21 11:11 | P.PN ---
Progress Note - Text Progress Note Date: 03/21/21 Interval History: Patient was seen resting in bed and was directable and agreeable to speak with director underwriter sales in his room. The patient states he apologized to his guardian Skyler Mueller and that he would like to be discharged. He is currently denying any suicidal or homicidal ideation, intention, and/or plan. He reports no auditory or visual hallucinations. He denies any paranoia or other delusions. He refused lamictal last night stating he does not want to take any other medications. He is not reporting any issues regarding his sleep or his appetite. This provider spoke with the patient's guardian who stated that the patient's threat of harm to him is new for the patient. He states that he has been working with the patient for many years and this is a new outcome in their relationship. He does express concern about this but does acknowledge the patient apologized. He states he does want the patient to be observed by [facility] or some crisis housing after discharge. This provider spoke with the guardian at length that the patient is maxed out on his prolixin decanoate injection. The patient has a long history of refusing oral medications and is likely not to take any oral medications when at home. Mental Status Exam: General Appearance: Patient appears to be stated age is alert, directable, and cooperative. Slightly disheveled. Unkempt hair and suero. Behavior: Psychomotor activity is normal. Patient is lying in bed comfortably. Eye contact is appropriate. Speech: Patient's speech is fluent and nonpressured. Spontaneous. Mood/Affect: Mood is "Can I go now?" Affect is guarded and intense at times. Suicidality/Homicidality: Patient denies having any suicidal ideation. He continues to deny homicidal ideation. Perceptions: Patient denies any visual hallucinations and denies any auditory hallucinations Though content/process: There is no evidence of any delusional thought content and thought process is linear and goal-directed. Memory and concentration: AOX3, grossly intact for the purposes of this session Judgment and insight: Improving mildly Vital Signs Temp 97.9 F 03/21/21 06:13 Pulse 68 03/21/21 06:13 Resp 16 03/21/21 06:13 BP 122/83 03/21/21 06:13 Pulse Ox 96 03/21/21 06:13 Assessment Schizoaffective disorder, bipolar type Cannabis use disorder Nicotine dependence Plan: -Patient continues to meet criteria for inpatient psychiatric admission for symptom stabilization and safety. -Patient is currently court ordered. -Medications: Prolixin decanoate 50 mg IM weekly was administered yesterday. Discontinue lamictal for now. Due to patient's nonadherence with medication, it would place the patient at greater risk for Barrios-Zachary Syndrome if he were to be prescribed this medication. -Although presenting as somewhat intense in affect, the patient is otherwise cooperative and calm. He is not endorsing any significant psychotic symptoms of mood lability. We will continue to observe for any change in frustration tolerance and consider augmentation with depakote. Patient has a long history of non adherence with oral medication. We will inform the patient that he is under court order and if he refuses any oral medication he will receive the injectible medication. -When necessary Ativan and Haldol for agitation/aggression. -NRT - nicotine patch -SW on board for discharge planning. Encouraged the patient to participate in milieu.
--- NOTE | 2021-03-22 11:29 | P.PN ---
Progress Note - Text Progress Note Date: 03/22/21 Interval History: Patient was seen resting in bed and was directable and agreeable to speak with web content writer in his room. The patient reports he is feeling ready to go. He is not endorsing any suicidal or homicidal ideation, intention, and/or plan. He reports no auditory or visual hallucinations. He denies any paranoia or other delusions. He remains primarily isolative to himself and reads throughout the day. He maintains that he is apologetic about the threat of murdering his guardian. He notes that he is agreeable to the injectible medication but will refuse oral medications. He reports no issues with sleep or appetite. Mental Status Exam: General Appearance: Patient appears to be stated age is alert, directable, and cooperative. Mildly improved hygiene. Unkempt hair and suero. Behavior: Psychomotor activity is normal. Patient is lying in bed comfortably. Eye contact is appropriate. Speech: Patient's speech is fluent and nonpressured. Spontaneous. Mood/Affect: Mood is "I'm okay" Affect is less guarded, more open, cooperative and polite. Suicidality/Homicidality: Patient denies having any suicidal ideation. He continues to deny homicidal ideation. Perceptions: Patient denies any visual hallucinations and denies any auditory hallucinations Though content/process: There is no evidence of any delusional thought content and thought process is linear and goal-directed. Memory and concentration: AOX3, grossly intact for the purposes of this session Judgment and insight: Improving mildly Vital Signs Temp 97.9 F 03/21/21 06:13 Pulse 68 03/21/21 06:13 Resp 16 03/21/21 06:13 BP 122/83 03/21/21 06:13 Pulse Ox 96 03/21/21 06:13 Assessment Schizoaffective disorder, bipolar type Cannabis use disorder Nicotine dependence Plan: -Patient continues to meet criteria for inpatient psychiatric admission for symptom stabilization and safety. -Patient is currently court ordered. -Medications: Prolixin decanoate 50 mg IM weekly was administered 03/20/2021. -Discussed with the treatment team that we will work with [facility] on outpatient recommendations including increasing his ACT services. Anticipate discharge tomorrow. -When necessary Ativan and Haldol for agitation/aggression. -NRT - nicotine patch -SIN on board for discharge planning. Encouraged the patient to participate in milieu.
[2021-03-23 06:43] VITALS: BP 112/77; PULSE 78; RESP 14; TEMP 97.2
--- NOTE | 2021-03-23 14:27 | DS ---
DISCHARGE SUMMARY DATE OF SERVICE: 03/23/2021. DATE OF ADMISSION: 03/16/2021. DATE OF DISCHARGE: 03/23/2021 ADMISSION AND DISCHARGE DIAGNOSES: 1. Schizoaffective disorder, bipolar type. 2. Cannabis use disorder. HISTORY OF PRESENTING ILLNESS: The patient is a 45-year-old male. He has long-term issues with mental health difficulties. [facility]up order due to noncompliance with treatment. He was noted to be having increasing agitation. He was not taking care of her basic needs. He was making threats to "cut off his head" or shoot him referring to his guardian. For the patient's part, he described being angry because he said his guardian did not return our telephone calls. He made a comment that he was "cursed" and otherwise did not need medications. He has a history of multiple psychiatric hospitalizations. He is on Prolixin Decanoate 50 mg IM weekly and is followed by the ACT team through [facility]. He has a history of marijuana and alcohol use. He was admitted for further evaluation. MENTAL STATUS EXAM: The patient was irritable and minimally cooperative. Eye contact was fair. He had psychomotor retardation, though no abnormal involuntary movements. His speech was normal. Affect angry and irritable. He was denying suicide thoughts or wishes. He denied any thoughts of harm towards others. He did acknowledge feelings of helplessness. Mood was dysphoric. COURSE OF HOSPITALIZATION: Patient was admitted for comprehensive medical psychiatric and psychosocial evaluation. We engaged the patient in individual and group therapeutic activities. On admission the patient was continued on Prolixin Decanoate 50 mg IM to be administered on a weekly basis. He received an injection on 03/19/2021. Through much of the hospitalization the patient was fairly withdrawn. He would spend quite a bit of time in his room. He chose not to attend groups. He seemed somewhat distressed early on in the hospital stay, though then was able to appear more relaxed and appropriate in the milieu. He interacted appropriately with staff. He did start making statements that he was apologetic for having made harmful statements towards others, namely his guardian. He said that there was an expression of frustration. It is noteworthy that Dr. Lopes had contact with the patient's guardian, Skyler Mueller. The guardian states that he has been working with the patient for many years. The guardian stated that the patient making a threat to harm him was something new for the patient. The guardian's concern was to have fairly close support from a [facility] upon discharge. For the patient's part, he generally slept well at night. He continued to generally be isolative. He would read in the day time. He was cooperative with medications and care. He continued to make statements about being apologetic for having made threats. It is noteworthy that the patient was indicating that he would not take oral medications. He was comfortable with continuing with Prolixin Decanoate as had been prescribed by [facility]. He was able to cooperate with discharge planning. CONDITION AT DISCHARGE: Patient was showing improved thoughts. He was cooperative with care. He tolerated his psychotropic medications. RECOMMENDATIONS AND FOLLOWUP: The patient will continue Prolixin Decanoate 50 mg IM weekly with his next dose due on March 26. He has followup with [facility] at 03/23/2021 at 2 p.m. He will have followup with Barney prather [facility] who will meet him on the psychiatric unit and provide transportation to home. He has a followup appointment on 03/29/2021 at 11:[address] Mosley at [facility]. MMODL / IJN: [id number] /
== END 2021-03-23 13:56 | disposition home or self-care (01) | DRG 885 ==
LOC: EC 15:59 → 3MHU 20:03
PROVIDERS: ADMIT Psychiatry & Neurology Psychiatry; ATTEND Psychiatry & Neurology Psychiatry
DX: F25.0 Schizoaffective disorder, bipolar type (principal); R45.851 Suicidal ideations; R45.850 Homicidal ideations; Z20.822 Contact with and (suspected) exposure to COVID-19; Z91.128 Patient's intentional underdosing of medication regimen for other reason; Z91.19 Patient's noncompliance with other medical treatment and regimen; F12.10 Cannabis abuse, uncomplicated; T50.906A Underdosing of unspecified drugs, medicaments and biological substances, initial encounter; F17.200 Nicotine dependence, unspecified, uncomplicated; Z71.6 Tobacco abuse counseling; Z79.899 Other long term (current) drug therapy; Z56.0 Unemployment, unspecified; Z88.8 Allergy status to other drugs, medicaments and biological substances
CPT/HCPCS: 80306; 82075; 87635; 99285

== ENCOUNTER 2021-08-29 21:32 | Emergency (ER) | payer MEDICARE, OTHER ==
--- NOTE | 2021-08-29 22:38 | ED ---
Psych HPI - General Chief Complaint: Psychiatric Symptoms Stated Complaint: mental health Time Seen by Provider: 08/29/21 21:51 Source: patient Mode of arrival: ambulatory - History of Present Illness Initial Comments: This patient is a 45-year-old man who presents with complaint that he believes he needs to be admitted to third floor. He states he has been very anxious going on for approximately one day. He is denying suicidal ideation at the moment. The patient states that he usually gets his care through [facility] but was not able to get in today. MD Complaint: other Onset/Timin -: days(s) History of same: Yes Quality: constant Improves With: none Worsens With: drug use Context: recent drug abuse - Related Data Home Medications Medication Instructions Recorded Confirmed fluPHENAZine decanoate [Prolixin 50 mg IM Q7D 08/29/21 Decanoate] Allergies Allergy/AdvReac Type Severity Reaction Status Date / Time clozapine [From Clozaril] Allergy Unknown Verified 08/29/21 23:46 paliperidone [From Invega] Allergy Unknown Verified 08/29/21 23:46 Review of Systems ROS Statement: Those systems with pertinent positive or pertinent negative responses have been documented in the HPI. ROS Other: All systems not noted in ROS Statement are negative. Constitutional: Denies: fever, chills Respiratory: Denies: cough, dyspnea Cardiovascular: Denies: chest pain, palpitations Gastrointestinal: Denies: abdominal pain, vomiting, diarrhea Genitourinary: Denies: dysuria, hematuria Skin: Denies: rash Neurological: Denies: headache Psychiatric: Reports: anxiety. Denies: depression, suicidal thoughts Past Medical History Past Medical History: No Reported History Additional Past Medical History / Comment(s): denies History of Any Multi-Drug Resistant Organisms: None Reported Past Surgical History: No Surgical Hx Reported Additional Past Surgical History / Comment(s): Pt uncooperative /c Admission, refused to give info. Past Anesthesia/Blood Transfusion Reactions: Unable to Obtain Additional Past Anesthesia/Blood Transfusion Reaction / Comment(s): Pt uncooperative /c Admission, refused to give info. Past Psychological History: Bipolar, Schizoaffective Disorder Smoking Status: Former smoker Past Alcohol Use History: Daily Past Drug Use History: Cocaine - Past Family History family Family Medical History: No Reported History General Exam Limitations: no limitations General appearance: alert, in no apparent distress Head exam: Present: atraumatic, normocephalic Eye exam: Present: normal appearance. Absent: scleral icterus, conjunctival injection Neck exam: Present: normal inspection Respiratory exam: Present: normal lung sounds bilaterally. Absent: respiratory distress, wheezes, rales, rhonchi, stridor Cardiovascular Exam: Present: regular rate, normal rhythm, normal heart sounds. Absent: systolic murmur, diastolic murmur, rubs, gallop GI/Abdominal exam: Present: soft. Absent: distended, tenderness, guarding, rebound, rigid, mass Extremities exam: Present: normal inspection, normal capillary refill. Absent: pedal edema, calf tenderness Back exam: Present: normal inspection. Absent: CVA tenderness (R), CVA tenderness (L) Neurological exam: Present: alert Psychiatric exam: Present: anxious. Absent: agitated, homicidal ideation, suicidal ideation Skin exam: Present: warm, dry, intact, normal color. Absent: rash Course Vital Signs 08/29/21 08/30/21 21:41 01:00 Temperature 97.9 F Pulse Rate 89 72 Respiratory 20 16 Rate Blood Pressure 123/66 132/76 O2 Sat by Pulse 96 98 Oximetry Disposition Clinical Impression: Anxiety Disposition: HOME SELF-CARE Condition: Good Instructions (If sedation given, give patient instructions): Anxiety (ED) Is patient prescribed a controlled substance at d/c from ED?: No Referrals: None,Stated [Primary Care Provider] - 1-2 days
[2021-08-30] MEDS ORDERED: LORazepam 1 MG TAB PO STA (01:20)
[2021-08-30 01:58] VITALS: RESP 16
[2021-08-30 06:10] VITALS: BP 119/77; PULSE 75; TEMP 98.2
== END 2021-08-30 06:07 | disposition home or self-care (01) ==
LOC: EC 21:32
DX: F41.9 Anxiety disorder, unspecified (principal); F31.9 Bipolar disorder, unspecified; F25.9 Schizoaffective disorder, unspecified; Z87.891 Personal history of nicotine dependence
CPT/HCPCS: 82075; 99283

== ENCOUNTER 2023-01-02 16:26 | Inpatient (IN) | payer MEDICARE, MEDICAID ==
[2023-01-02 17:18] VITALS: PULSE 118
--- NOTE | 2023-01-02 18:05 | ED ---
Psych HPI - General Chief Complaint: Psychiatric Symptoms Stated Complaint: Mental Health Time Seen by Provider: 01/02/23 17:21 Source: patient Mode of arrival: ambulatory - History of Present Illness Initial Comments: This patient is a 47-year-old man who is here to have psychiatric evaluation. The patient states that his marine technician wanted him to be evaluated. He states he had an argument with another resident. The patient states that he feels he should be more accepting. He expresses remorse about the argument. He denies any homicidal or suicidal ideation MD Complaint: other -: hour(s) Associated Psychiatric Symptoms: racing thoughts, other Quality: resolved prior to arrival Improves With: none Worsens With: none Context: significant life stressor Associated Symptoms: denies other symptoms - Related Data Home Medications Medication Instructions Recorded Confirmed fluPHENAZine decanoate [Prolixin 50 mg IM Q7D 08/29/21 01/02/23 Decanoate] Allergies Allergy/AdvReac Type Severity Reaction Status Date / Time clozapine [From Clozaril] Allergy Unknown Verified 01/02/23 19:02 paliperidone [From Invega] Allergy Unknown Verified 01/02/23 19:02 Review of Systems ROS Statement: Those systems with pertinent positive or pertinent negative responses have been documented in the HPI. ROS Other: All systems not noted in ROS Statement are negative. Constitutional: Denies: fever, chills Respiratory: Denies: cough, dyspnea Cardiovascular: Denies: chest pain Gastrointestinal: Denies: abdominal pain Musculoskeletal: Denies: back pain Neurological: Denies: headache, weakness Psychiatric: Reports: anxiety. Denies: auditory hallucinations, visual hallucinations, homicidal thoughts, suicidal thoughts Past Medical History Past Medical History: No Reported History Additional Past Medical History / Comment(s): denies History of Any Multi-Drug Resistant Organisms: None Reported Past Surgical History: No Surgical Hx Reported Additional Past Surgical History / Comment(s): Pt uncooperative /c Admission, refused to give info. Past Anesthesia/Blood Transfusion Reactions: Unable to Obtain Additional Past Anesthesia/Blood Transfusion Reaction / Comment(s): Pt uncooperative /c Admission, refused to give info. Past Psychological History: Bipolar, Schizoaffective Disorder Smoking Status: Former smoker Past Alcohol Use History: Daily Past Drug Use History: Cocaine - Past Family History family Family Medical History: No Reported History General Exam Limitations: no limitations General appearance: alert, in no apparent distress Head exam: Present: atraumatic, normocephalic Eye exam: Present: normal appearance. Absent: scleral icterus, conjunctival injection Respiratory exam: Present: normal lung sounds bilaterally. Absent: respiratory distress, wheezes, rales, rhonchi, stridor Cardiovascular Exam: Present: regular rate, normal rhythm, normal heart sounds. Absent: systolic murmur, diastolic murmur, rubs, gallop GI/Abdominal exam: Present: soft. Absent: distended, tenderness, guarding, rebound, mass Extremities exam: Present: normal inspection, normal capillary refill. Absent: pedal edema, calf tenderness Neurological exam: Present: alert Psychiatric exam: Absent: depressed, agitated, anxious, manic, homicidal ideation, suicidal ideation Skin exam: Present: warm, dry, intact, normal color. Absent: rash Course Vital Signs 01/02/23 01/02/23 17:15 17:18 Temperature 97.7 F 98 F Pulse Rate 118 H 118 H Respiratory 20 20 Rate Blood Pressure 120/64 126/65 O2 Sat by Pulse 99 98 Oximetry Medical Decision Making - Medical Decision Making seen by EPS personnel and after their discussion with psychiatrist patient will be admitted Was pt. sent in by a medical professional or institution (, PA, BALANCE STAFF INSPECTOR, urgent care, hospital, or retirement...) When possible be specific @ -[No] Did you speak to anyone other than the patient for history (EMS, parent, family, police, friend...)? What history was obtained from this source @ -[No] Did you review nursing and triage notes (agree or disagree)? Why? @ -[I reviewed and agree with nursing and triage notes] Were old charts reviewed (outside hosp., previous admission, EMS record, old EKG , old radiological studies, urgent care reports/EKG's, retirement records)? Report findings @ -[No old charts were reviewed] Differential Diagnosis (chest pain, altered mental status, abdominal pain women, abdominal pain men, vaginal bleeding, weakness, fever, dyspnea, syncope, headache, dizziness, GI bleed, back pain, seizure, CVA, palpatations, mental hea lth, musculoskeletal)? @ -[Differential Mental Health Depression, anxiety, bipolar, psychosis, schizophrenia, borderline personality, situational depression, adjustment disorder, behavioral disorder, brain tumor, malingering, substance abuse, encephalopathy, medication reaction, dementia, hypothyroidism, degenerative neurologic disorder, lupus.... This is not meant to be all-inclusive list EKG interpreted by me (3pts min.). @ -[ X-rays interpreted by me (1pt min.). @ -[None done] CT interpreted by me (1pt min.). @ -[None done] U/S interpreted by me (1pt. min.). @ -[None done] What testing was considered but not performed or refused? (CT, X-rays, U/S, labs)? Why? @ -[None] What meds were considered but not given or refused? Why? @ -[None] Did you discuss the management of the patient with other professionals (professionals i.e. , PA, BALANCE STAFF INSPECTOR, lab, RT, psych nurse, vp digital marketing social media and crm, retail sales merchandiser development, teacher, licensing officer, caseworker)? Give summary @ -[Case discussed with EPS personnel Was smoking cessation discussed for >3mins.? @ -[No] Was critical care preformed (if so, how long)? @ -[No] Were there social determinants of health that impacted care today? How? (Homelessness, low income, unemployed, alcoholism, drug addiction, transportation, low edu. Level, literacy, decrease access to med. care, residential, rehab)? @ -[No] Was there de-escalation of care discussed even if they declined (Discuss DNR or withdrawal of care, Hospice)? DNR status @ -[No] What co-morbidities impacted this encounter? (DM, HTN, Smoking, COPD, CAD, Cancer, CVA, ARF, Chemo, Hep., AIDS, mental health diagnosis, sleep apnea, morbid obesity)? @ -[None] Was patient admitted / discharged? Hospital course, mention meds given and route, prescriptions, significant lab abnormalities, going to OR and other pertinent info. @ -[Patient be admitted for further psychiatric care Undiagnosed new problem with uncertain prognosis? @ -[No] Drug Therapy requiring intensive monitoring for toxicity (Heparin, Nitro, Insulin, Cardizem)? @ -[No] Were any procedures done? @ -[No] Diagnosis/symptom? @ -[Acute exacerbation of schizoaffective disorder Acute, or Chronic, or Acute on Chronic? @ -[default] Uncomplicated (without systemic symptoms) or Complicated (systemic symptoms)? @ -[Uncomplicated Side effects of treatment? @ -[No] Exacerbation, Progression, or Severe Exacerbation? @ -[Yes, exacerbation Poses a threat to life or bodily function? How? (Chest pain, [place], [place], pneumonia, PE, COPD, DKA, ARF, appy, cholecystitis, CVA, Diverticulitis, Homicidal, Suicidal, threat to staff... and all critical care pts) @ -[No] - Lab Data Lab Results 01/02/23 Range/Units 20:28 Coronavirus (PCR) Not Detected (Not Detectd) Disposition Clinical Impression: Schizoaffective disorder Disposition: ADMITTED IP TO THIS HOSP Condition: Fair Is patient prescribed a controlled substance at d/c from ED?: No
[2023-01-02] MEDS ORDERED: MAG HYDROX/AL HYDROX/SIMETH 30 ML CUP PO PRN (22:08)
[2023-01-02] MEDS ORDERED: MAGNESIUM HYDROXIDE 2,400 MG/30 ML CUP PO PRN (22:08)
[2023-01-02] MEDS ORDERED: ACETAMINOPHEN TAB 325 MG TAB PO PRN (22:08)
[2023-01-02] MEDS ORDERED: haloperidoL 5 MG TAB PO PRN (22:12)
[2023-01-02] MEDS ORDERED: HALOPERIDOL LACTATE 5 MG/ML 1 ML VIAL IM PRN (22:12)
[2023-01-02] MEDS ORDERED: LORazepam 1 MG TAB PO PRN (22:12)
[2023-01-02] MEDS ORDERED: LORazepam 2 MG/ML INJ IM PRN (22:12)
[2023-01-03] MEDS: NICOTINE 14MG/24HR PATCH TRANSDERM SCH (10:16)
--- NOTE | 2023-01-03 13:08 | P.HP ---
Psychiatric H&P - . H&P Date: 01/03/23 History & Physical: Allergies Allergy/AdvReac Type Severity Reaction Status Date / Time clozapine From Clozaril Allergy Unknown Verified 01/02/23 19:02 paliperidone From Invega Allergy Unknown Verified 01/02/23 19:02 Vital Signs Temp 98 F 01/02/23 17:18 Pulse 118 H 01/02/23 17:18 Resp 20 01/02/23 17:18 BP 126/65 01/02/23 17:18 Pulse Ox 98 01/02/23 17:18 FiO2 Intake & Output 01/02/23 01/03/23 01/03/23 18:59 06:59 18:59 Weight 98.43 kg Laboratory Last Values Coronavirus (PCR) Not Detected (Not Detectd) 01/02/23 20:28 01/03/23 12:57 IDENTIFYING DATA: Patient is a 47-year-old male with a history of schizoaffective disorder bipolar type, currently on a year-long mental health treatment in order which expires in 09/11/2023, he apparently has a guardian and lives alone in an apartment. HPI: Patient presented to the hospital yesterday for psychiatric evaluation. Apparently patient was agitated and psychotic and brought in by [facility]. Patient is currently being followed by the activity, he is on a year-long court order for mental health treatment, which expires in 09/11/2023. Patient has a significant chronic history of mental illness including schizoaffective disorder and polysubstance abuse. Patient is being seen by [facility] his psychiatrist is Dr Mosley. Patient is currently on Prolixin D 50 mg IM every weekly, last dose was given o n 12/31 and next dose will be due on 01/06. Patient was admitted involuntarily on a mental health treatment in order to the unit. Patient was seen by automobile and property underwriter this morning coming out of his room. Patient appeared to have a disheveled appearance and pacing the hallways quickly. Cigar Head Stringer approached the patient and patient stopped abruptly and had an intense stare. He was fairly delusional, rambling and illogical. He spoke about the "illuminati" and also the pharma companies conspiring against him to take medications and asked automobile and property underwriter if he was part of the "illuminati". he was also somewhat relgiiously preoccupied and asked automobile and property underwriter if he beleived in God and was a congregational. Patient denies any depression or anxiety. He was fairly concrete with his answers. He denies any auditory or visual hallucinations. Denies any suicidal or homicidal ideations intent or plan. He denied any problems with sleep or appetite. He appeared to have very poor impulse control, poor understanding of his need for treatment. He did have flight of ideas and racing thoughts. When automobile and property underwriter asked him about his medications patient stated back "Im not taking any of your pills" then proceeded to walk away and refused to answer any other quesiton. Patient was not able to answer any questions related to substance use and did not provide a urine drug screen. Patient apparently does have a history of cannabis use, cocaine use and also alcohol use according to [facility] records. Patient smokes cigarettes daily. PAST PSYCHIATRIC HISTORY: Patient states that he has a history of schizoaffective disorder and polysubstance abuse. Patient is currently on Prolixin D 50 mg IM every weekly. Last dose was given on 12/31 and next dose will be due on 01/06. Patient was last psychiatrically hospitalized on the mental unit in March 2021. Patient currently follows up at [facility] and was last seen by his psychiatrist in early November 2022. PMH:Past Medical History: No Reported History Additional Past Medical History / Comment(s): denies History of Any Multi-Drug Resistant Organisms: None Reported Past Surgical History: No Surgical Hx Reported Additional Past Surgical History / Comment(s): Pt uncooperative /c Admission, refused to give info. Past Anesthesia/Blood Transfusion Reactions: Unable to Obtain Additional Past Anesthesia/Blood Transfusion Reaction / Comment(s): Pt uncooperative /c Admission, refused to give info. Past Psychological History: Bipolar, Schizoaffective Disorder Smoking Status: Former smoker Past Alcohol Use History: Daily Past Drug Use History: Cocaine ALLERGIES: as per EMR CHEMICAL DEPENDENCY HISTORY: As per HPI FAMILY PSYCHIATRIC/SUBSTANCE USE HISTORY: Unable to assess SOCIAL HISTORY: Patient currently lives alone in an apartment, she has a guardian currently. Patient was not cooperative with the rest of the social history. MENTAL STATUS EXAM: General Appearance: Patient appears to be tall, disheveled appearance, balding stated age is alert, pacing and appeared to be paranoid. Patient appears to have poor hygiene and grooming. Behavior: Patient is seated without any agitated behavior. Uncooperative and paranoid. Speech: Patient's speech is fluent and nonpressured. Monotone Mood/Affect: Patient reports their mood is "okay", affect is congruent and constricted. Suicidality/Homicidality: Patient denies having any homicidal ideation intent or plan. Denies any suicidal ideations intent or plan Perceptions: Patient denies any visual hallucinations and denies any auditory hallucinations Though content/process: Delusional, multiple loosely formed delusions. Reli giously preoccupied. Illogical. Memory and concentration: Unable to assess Judgment and insight: Chronically poor STRENGTHS/WEAKNESSES: strength is that patient is resilient. Weakness is that patient has poor judgment and is impulsive and has a history of chronic mental illness INTELLECT: average IMPRESSIONS: Schizoaffective disorder bipolar type History of cannabis use disorder History of cocaine use disorder History of alcohol use disorder Nicotine dependence PLAN: -Patient is admitted under involuntary status to [facility]HU for stabilization of psychiatric symptoms and safety. Patient was not agreeable to sign the medication consent form. Patient is currently on an active treatment order which expires 09/11/2023. -Medications : Will resume Prolixin D 50 mg IM, last dose was given on 12/31 and next dose will be due on 01/06. Will add 10 mg of Zyprexa by mouth daily at bedtime for adjunct/insomnia, patient refuses then used to receive IM as per court order -Ativan and Haldol PRN for agitation/aggression -Internal Medicine consult to perform medical evaluation and physical. -NRT - nicotine patch -SW on board for discharge planning. Encourage patient to participate in groups to work on coping skills. Patient is currently being followed by the act team in [facility]. 01/03/23 13:03 01/03/23 13:04
[2023-01-03] MEDS: OLANZapine 10 MG TAB PO SCH (21:30)
--- NOTE | 2023-01-03 22:28 | P.PN ---
Progress Note - Text Progress Note Date: 01/03/23 Attempted to see the patient in the MHU. The patient refused to be seen or be evaluated.
[2023-01-04] MEDS: NICOTINE 14MG/24HR PATCH TRANSDERM SCH (10:18)
--- NOTE | 2023-01-04 11:10 | P.PN ---
Progress Note - Text Progress Note Date: 01/04/23 Interval History: Patient was seen laying in bed this morning and was directable and agreeable to speak with screenplay writer. Patient continues to have poor hygiene and grooming and disheveled appearance. He was fairly concrete initially and directable, denied any depression or anxiety at this time. He is denying any problems with sleep or appetite at this time. At this time patient denies any suicidal or homical ideations, intent or plan. Patient denies any auditory, visual hallucinations. Once screenplay writer began asking patient about the medications last night patient then became paranoid, delusional speaking about the illuminati and also the devil" Lucifer" and described this as the pharmaceutical company. He continues to state that he is not taking the medications. Has very poor insight and judgment. Mental Status Exam: General Appearance: Patient appears to be tall, disheveled appearance, balding stated age is alert, pacing and appeared to be paranoid. Patient appears to have poor hygiene and grooming. Behavior: Patient is seated without any agitated behavior. Uncooperative and paranoid. Speech: Patient's speech is fluent and nonpressured. Monotone Mood/Affect: Patient reports their mood is "ok", affect is congruent and constricted. Suicidality/Homicidality: Patient denies having any homicidal ideation intent or plan. Denies any suicidal ideations intent or plan Perceptions: Patient denies any visual hallucinations and denies any auditory hallucinations Though content/process: Delusional, multiple loosely formed delusions. Religiously preoccupied. illogical. Memory and concentration: Unable to assess Judgment and insight: Chronically poor IMPRESSIONS: Schizoaffective disorder bipolar type History of cannabis use disorder History of cocaine use disorder History of alcohol use disorder Nicotine dependence PLAN: -Patient is admitted under involuntary status to [facility] for stabilization of psychiatric symptoms and safety. Patient was not agreeable to sign the medication consent form. Patient is currently on an active treatment order which expires 09/11/2023. -Medications : Prolixin D 50 mg IM, last dose was given on 12/31 and next dose will be due on 01/06. continue 10 mg of Zyprexa by mouth daily at bedtime for adjunct/insomnia scheduled, IF patient refuses then used to receive IM as per court order -Ativan and Haldol PRN for agitation/aggression -Internal Medicine consult to perform medical evaluation and physical. -NRT - nicotine patch -SW on board for discharge planning. Encourage patient to participate in groups to work on coping skills. Patient is currently being followed by the act team in [facility].
[2023-01-04] MEDS ORDERED: WATER FOR INJECTION, STERILE 10 ML IV ONE (19:37)
[2023-01-04] MEDS: OLANZapine 10 MG VIAL IM PRN (20:04)
[2023-01-04] MEDS: OLANZapine 10 MG TAB PO SCH (20:06)
[2023-01-05] MEDS: NICOTINE 14MG/24HR PATCH TRANSDERM SCH (09:32)
--- NOTE | 2023-01-05 10:46 | P.PN ---
Progress Note - Text Progress Note Date: 01/05/23 Interval History: Patient was seen laying in bed this morning and was directable and agreeable to speak with software writer. Patient claims that he slept better last night. He denied any side effects on the medication he was given yesterday. Apparently patient was fairly agitated and acquired IM Zyprexa and refused to take the by mouth. Patient continues to have poor hygiene and grooming and disheveled appearance. He was fairly concrete initially and directable, denied any depression or anxiety at this time. He is denying any problems with sleep or appetite at this time. At this time patient denies any suicidal or homical ideations, intent or plan. Patient denies any auditory, visual hallucinations. Has very chronically poor insight and judgment. Patient asked software writer if he was a "illuminati Henchman" and also spoke about the "rothschilds controlling everything" however was showing mild improvement in his sabianist preoccupation. Mental Status Exam: General Appearance: Patient appears to be tall, disheveled appearance, balding stated age is alert, pacing and appeared to be mildly less paranoid. Patient appears to have improving hygiene and grooming. Behavior: Patient is seated without any agitated behavior. Uncooperative and paranoid, improving mildly Speech: Patient's speech is fluent and nonpressured. Monotone Mood/Affect: Patient reports their mood is "ok", affect is congruent and constricted. Suicidality/Homicidality: Patient denies having any homicidal ideation intent or plan. Denies any suicidal ideations intent or plan Perceptions: Patient denies any visual hallucinations and denies any auditory hallucinations Though content/process: Delusional, multiple loosely formed delusions. less Religiously preoccupied. more logical today Memory and concentration: Unable to assess Judgment and insight: Chronically poor IMPRESSIONS: Schizoaffective disorder bipolar type History of cannabis use disorder History of cocaine use disorder History of alcohol use disorder Nicotine dependence PLAN: -Patient is admitted under involuntary status to [facility] for stabilization of psychiatric symptoms and safety. Patient was not agreeable to sign the medication consent form. Patient is currently on an active treatment order which expires 09/11/2023. -Medications : Prolixin D 50 mg IM, last dose was given on 12/31 and next dose will be due on 01/06. continue 10 mg of Zyprexa by mouth daily at bedtime for adjunct/insomnia scheduled, IF patient refuses then used to receive IM as per court order -Ativan and Haldol PRN for agitation/aggression -Internal Medicine consult to perform medical evaluation and physical. -NRT - nicotine patch -SW on board for discharge planning. Encourage patient to participate in groups to work on coping skills. Patient is currently being followed by the act team in [facility].
[2023-01-05] MEDS: OLANZapine 10 MG VIAL IM PRN (19:44)
[2023-01-05] MEDS: OLANZapine 10 MG TAB PO SCH (19:46)
[2023-01-06] MEDS ORDERED: fluPHENAZine DECANOATE 25 MG/ML 5ML MDV IM SCH (09:00)
[2023-01-06] MEDS: NICOTINE 14MG/24HR PATCH TRANSDERM SCH (11:18)
--- NOTE | 2023-01-06 11:24 | P.PN ---
Progress Note - Text Progress Note Date: 01/06/23 Interval History: Patient was seen laying in bed this morning and was directable and agreeable to speak with magnetic tape typewriter operator. He continues to be fairly concrete. Denied any problems last night or with the medications. Claims that he hears "the voice of God" and when asked what he is hearing he states that "that I can't get anything in his kingdom and he is going to treatment well". He appears to be mildly less focused on his delusions and less religiously preoccupied today. Patient received the Zyprexa IM yesterday however needed a med hold for it. Patient will be due for Prolixin D weekly injection today. Patient has mildly improving hygiene and grooming. He was fairly concrete initially and directable, denied any depression or anxiety at this time. He is denying any problems with sleep or appetite at this time. At this time patient denies any suicidal or homical ideations, intent or plan. Patient denies any auditory, visual hallucinations. Has very chronically poor insight and judgment. Mental Status Exam: General Appearance: Patient appears to be tall, disheveled appearance, balding stated age is alert, pacing and appeared to be mildly less paranoid. Patient appears to have improving hygiene and grooming. Behavior: Patient is seated without any agitated behavior. Mildly more cooperative today. Speech: Patient's speech is fluent and nonpressured. Monotone Mood/Affect: Patient reports their mood is "ok", affect is congruent and constricted. Suicidality/Homicidality: Patient denies having any homicidal ideation intent or plan. Denies any suicidal ideations intent or plan Perceptions: Patient denies any visual hallucinations and denies any auditory hallucinations Though content/process: Delusional, multiple loosely formed delusions. less Religiously preoccupied Memory and concentration: Unable to assess Judgment and insight: Chronically poor, improving mildly IMPRESSIONS: Schizoaffective disorder bipolar type History of cannabis use disorder History of cocaine use disorder History of alcohol use disorder Nicotine dependence PLAN: -Patient is admitted under involuntary status to [facility] for stabilization of psychiatric symptoms and safety. Patient was not agreeable to sign the medication consent form. Patient is currently on an active treatment order which expires 09/11/2023. -Medications : Prolixin D 50 mg IM, last dose was given on 12/31 and next dose will be due today on 01/06. continue 10 mg of Zyprexa by mouth daily at bedtime for adjunct/insomnia scheduled, IF patient refuses then used to receive IM as per court order -Ativan and Haldol PRN for agitation/aggression -Internal Medicine consult to perform medical evaluation and physical. -NRT - nicotine patch -SW on board for discharge planning. Encourage patient to participate in groups to work on coping skills. Patient is currently being followed by the act team in [facility]. likely discharge in 2-3 days
[2023-01-06] MEDS: OLANZapine 10 MG VIAL IM PRN ×2 (12:37→21:58)
[2023-01-06] MEDS ORDERED: WATER FOR INJECTION, STERILE 10 ML IV ONE (12:40)
[2023-01-06] MEDS: OLANZapine 10 MG TAB PO SCH (21:47)
--- NOTE | 2023-01-07 03:05 | P.CONS ---
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 he denies suicidal or homicidal ideation. he had an argument with another resident and ended up here Review of systems unavailable Physical examination available patient declined evaluation Assessment and plan Insurance Office Supervisor requesting psych evaluation due to abnormal behavior No blood work available at this time Thank you for this consultation placed to chart sound physicians if patient has any medical concerns Past Medical History Past Medical History: No Reported History Additional Past Medical History / Comment(s): denies History of Any Multi-Drug Resistant Organisms: None Reported Past Surgical History: No Surgical Hx Reported Additional Past Surgical History / Comment(s): Pt uncooperative /c Admission, refused to give info. Past Anesthesia/Blood Transfusion Reactions: Unable to Obtain Additional Past Anesthesia/Blood Transfusion Reaction / Comm: Pt uncooperative /c Admission, refused to give info. Past Psychological History: Bipolar, Schizoaffective Disorder Smoking Status: Former smoker Past Alcohol Use History: Daily Past Drug Use History: Cocaine - Past Family History family Family Medical History: No Reported History Medications and Allergies Home Medications Medication Instructions Recorded Confirmed Type fluPHENAZine decanoate [Prolixin 50 mg IM Q7D 08/29/21 01/02/23 History Decanoate] Allergies Allergy/AdvReac Type Severity Reaction Status Date / Time clozapine [From Clozaril] Allergy Unknown Verified 01/02/23 19:02 paliperidone [From Invega] Allergy Unknown Verified 01/02/23 19:02
--- NOTE | 2023-01-07 11:38 | P.PN ---
Progress Note - Text Progress Note Date: 01/07/23 Interval History: Patient was seen laying in bed this morning and was directable and agreeable to speak with web content writer. Patient has been noted by staff to be having conversations with himself, responding to internal stimuli in his room. Patient was wide awake in his room and greeted web content writer. He continues to be fairly concrete, bizarre in his affect. He continues to refuse the by mouth medications and requires IM injections. She denied any problems overnight however did state that he did not sleep well. Continues to be religiously preoccupied and spoke about "God's voice" and states that he was singing "hyms" last night as he could not sleep. continues to be delusionl and religiously preoccupied. Patient has mildly improving hygiene and grooming. He was directable, denied any depression or anxiety at this time. At this time patient denies any suicidal or homical ideations, intent or plan. Patient denies any visual hallucinations. Has very chronically poor insight and judgment. Mental Status Exam: General Appearance: Patient appears to be tall, disheveled appearance, balding s tated age is alert, pacing and appeared to be mildly less paranoid. Patient appears to have improving hygiene and grooming. Behavior: Patient is seated without any agitated behavior. Mildly more coop erative today. bizzare. Speech: Patient's speech is fluent and nonpressured. Monotone Mood/Affect: Patient reports their mood is "fine", affect is congruent and constricted. Suicidality/Homicidality: Patient denies having any homicidal ideation intent or plan. Denies any suicidal ideations intent or plan Perceptions: Patient denies any visual hallucinations and denies any auditory hallucinations Though content/process: Delusional, multiple loosely formed delusions. less Religiously preoccupied Memory and concentration: Unable to assess Judgment and insight: Chronically poor IMPRESSIONS: Schizoaffective disorder bipolar type History of cannabis use disorder History of cocaine use disorder History of alcohol use disorder Nicotine dependence PLAN: -Patient is admitted under involuntary status to [facility] for stabilization of psychiatric symptoms and safety. Patient was not agreeable to sign the medication consent form. Patient is currently on an active treatment order which expires 09/11/2023. -Medications : Prolixin D 50 mg IM, last dose was given on 01/06. increase 10 mg BID of Zyprexa for adjunct/insomnia scheduled, IF patient refuses then used to receive IM as per court order -Ativan and Haldol PRN for agitation/aggression -NRT - nicotine patch -SW on board for discharge planning. Encourage patient to participate in groups to work on coping skills. likely discharge in 2-3 days if patient improves clinically. ACT to come onto the unit to assess patient and give feedback on patients baseline.
[2023-01-07] MEDS ORDERED: WATER FOR INJECTION, STERILE 10 ML IV ONE (12:10)
[2023-01-07] MEDS: OLANZapine 10 MG VIAL IM PRN ×2 (12:14→21:36)
[2023-01-07] MEDS: OLANZapine 10 MG TAB PO SCH ×2 (12:26→21:33)
[2023-01-07 14:22] VITALS: BMI 30.2
[2023-01-08] MEDS ORDERED: WATER FOR INJECTION, STERILE 10 ML IV ONE (09:05)
[2023-01-08] MEDS: OLANZapine 10 MG TAB PO SCH ×2 (09:21→21:43)
[2023-01-08] MEDS: OLANZapine 10 MG VIAL IM PRN (09:21)
--- NOTE | 2023-01-08 11:24 | P.PN ---
Progress Note - Text Progress Note Date: 01/08/23 Interval History: Patient was seen laying in bed this morning and was directable and agreeable to speak with press writer. Patient appeared to be fairly tired today. He was fairly guarded and dismissive of press writer. He answered a few questions, denied any complaints. Claims that he is feeling somewhat tired. He did not want to speak about the medications at this time. Continues to hear "God's voice". He received the Zyprexa IM dose this morning. According the staff patient has been responding to internal stimuli less and less resistant to the medications. Patient has mildly improving hygiene and grooming. He was directable, denied any depression or anxiety at this time. At this time patient denies any suicidal or homical ideations, intent or plan. Patient denies any visual hallucinations. Has very chronically poor insight and judgment. Mental Status Exam: General Appearance: Patient appears to be tall, disheveled appearance, balding stated age is lethargic, mildly hostile.. Patient appears to have improving hygiene and grooming. Behavior: Patient is living in that without any agitated behavior. Dismissive. bizzare. Appears to be lethargic. Speech: Patient's speech is fluent and nonpressured. Monotone Mood/Affect: Patient reports their mood is "ok", affect is congruent and constricted. Suicidality/Homicidality: Patient denies having any homicidal ideation intent or plan. Denies any suicidal ideations intent or plan Perceptions: Patient denies any visual hallucinations and admits to hallucinations, hearing "God's voice" Though content/process: On [place], less delusional today. Memory and concentration: Unable to assess Judgment and insight: Chronically poor IMPRESSIONS: Schizoaffective disorder bipolar type History of cannabis use disorder History of cocaine use disorder History of alcohol use disorder Nicotine dependence PLAN: -Patient is admitted under involuntary status to [facility] for stabilization of psychiatric symptoms and safety. Patient was not agreeable to sign the medication consent form. Patient is currently on an active treatment order [facility] expires 09/11/2023. -Medications : Prolixin D 50 mg IM, last dose was given on 01/06. 10 mg BID of Zyprexa for adjunct/insomnia scheduled, IF patient refuses then used to receive IM as per court order -Ativan and Haldol PRN for agitation/aggression -NRT - nicotine patch -SW on board for discharge planning. Encourage patient to participate in groups to work on coping skills. ACT came onto unit to assess patient and compare to baseline and claims that he was delusional and uncooperative with them. will continue to treat and work on placement.
[2023-01-09] MEDS ORDERED: WATER FOR INJECTION, STERILE 10 ML IV ONE (10:12)
[2023-01-09] MEDS: OLANZapine 10 MG VIAL IM PRN (10:16)
[2023-01-09] MEDS: OLANZapine 10 MG TAB PO SCH ×2 (10:17→21:04)
--- NOTE | 2023-01-09 11:16 | P.PN ---
Progress Note - Text Progress Note Date: 01/09/23 Interval History: Patient was seen laying in bed this morning and was directable and agreeable to speak with resume writer. Patient continues to receive IM Zyprexa twice a day. Patient initially was cooperative and concrete with resume writer however did appear to be suspicious. He did not report any problems at all on the unit. He is denying any depression or anxiety at this time. When resume writer asked more about patient's medications, stood up quickly and began rambling and was illogical and religiously preoccupied. He spoke significantly about "God and [place]" and was relating it back to pharmaceutical companies and medications. he had pressured speech, flight of ideas. Patient has mildly improving hygiene and grooming. He denies any depression or anxiety at this time. At this time patient denies any suicidal or homical ideations, intent or plan. Patient denies any visual hallucinations. continues to hear "Gods voice". Has very chronically poor insight and judgment. Mental Status Exam: General Appearance: Patient appears to be tall, disheveled appearance, balding stated age is alert, mildly hostile.. Patient appears to have improving hygiene and grooming. Behavior: Patient is living in that without any agitated behavior. Dismissive. bizzare. Speech: Patient's speech is fluent and pressured. Monotone, rambling. Mood/Affect: Patient reports their mood is "ok", affect is congruent and constricted. Suicidality/Homicidality: Patient denies having any homicidal ideation intent or plan. Denies any suicidal ideations intent or plan Perceptions: Patient denies any visual hallucinations and admits to hallucinations, hearing "God's voice" Though content/process: concrete, delusional, rambling, loose associations, relgiously preoccupied. Memory and concentration: Unable to assess Judgment and insight: Chronically poor IMPRESSIONS: Schizoaffective disorder bipolar type History of cannabis use disorder History of cocaine use disorder History of alcohol use disorder Nicotine dependence PLAN: -Patient is admitted under involuntary status to MHU for stabilization of psychiatric symptoms and safety. Patient was not agreeable to sign the medication consent form. Patient is currently on an active treatment order which expires 09/11/2023. -Medications : Prolixin D 50 mg IM, last dose was given on 01/06. 10 mg BID of Zyprexa for adjunct/insomnia scheduled, IF patient refuses then used to receive IM as per court order. will consider switching to thorazine IM instead of Zyprexa tomorrow if patient continues to not improve. -Ativan and Haldol PRN for agitation/aggression -NRT - nicotine patch -SW on board for discharge planning. Encourage patient to participate in groups to work on coping skills. ACT came onto unit to assess patient and compare to baseline and claims that he was delusional and uncooperative with them. will continue to treat and work on placement.
[2023-01-10] MEDS: OLANZapine 10 MG TAB PO SCH ×2 (08:31→20:13)
--- NOTE | 2023-01-10 10:05 | P.PN ---
Progress Note - Text Progress Note Date: 01/10/23 Interval History: Patient was seen laying in bed this morning and was reading the Bible. Patient was directable and agreeable to speak with procedure writer. The patient appeared to be less irritable today and less hostile with procedure writer. He answered more questions appropriately. He claims that he took the pill this morning instead of receiving the shot. He appears to be mildly improving in terms of his judgment and also insight. He also has been noted to be responding to internal stimuli less today. He asked more questions about his discharge planning today. we spoke about needing to ensure that he is taking the oral meds regularly and he was agreeable to that over the weekend. We also spoke about the act team needing to common follow-up with him at his apartment which he is agreeable to. Claims that he is not interested in going to groups and claims that he would rather read the Bible instead. He appears to be more pleasant during the interaction today. Less religiously preoccupied. no pressured speech, or flight of ideas. Patient has mildly improving hygiene and grooming. He denies any depression or anxiety at this time. At this time patient denies any suicidal or homical ideations, intent or plan. Patient denies any visual hallucinations or auditory hallucinations. Mental Status Exam: General Appearance: Patient appears to be tall, improving appearance, balding stated age is alert, or directable today Patient appears to have improving hygiene and grooming. Behavior: Patient is living in that without any agitated behavior. More cooperative today. [place]. Speech: Patient's speech is fluent and pressured. Monotone, rambling. Mood/Affect: Patient reports their mood is "ok", affect is congruent and constricted, mildly improving. Suicidality/Homicidality: Patient denies having any homicidal ideation intent or plan. Denies any suicidal ideations intent or plan Perceptions: Patient denies any visual hallucinations and denies any auditory hallucinations. Though content/process: concrete, rambling less, less relgiously preoccupied. Memory and concentration: Unable to assess Judgment and insight: Chronically poor, improving mildly IMPRESSIONS: Schizoaffective disorder bipolar type History of cannabis use disorder History of cocaine use disorder History of alcohol use disorder Nicotine dependence PLAN: -Patient is admitted under involuntary status to [facility] for stabilization of psychiatric symptoms and safety. Patient was not agreeable to sign the m edication consent form. Patient is currently on an active treatment order which expires 09/11/2023. -Medications : Prolixin D 50 mg IM q7days, last dose was given on 01/06 and next dose will be due on 01/13. 10 mg BID of Zyprexa for adjunct/insomnia scheduled, IF patient refuses then used to receive IM as per court order -Ativan and Haldol PRN for agitation/aggression -NRT - nicotine patch -SW on board for discharge planning. Encourage patient to participate in groups to work on coping skills. ACT came onto unit to assess patient and compare to baseline and claims that he was delusional and uncooperative with them. patient is improving mildly compared to yesterday and less psychotic. he agreeable to take the oral meds at this time, will continue to monitor over the weekend then prepare for discharge early next week and cocoridnate with act team for closer f/u
[2023-01-11] MEDS: OLANZapine 10 MG TAB PO SCH ×2 (08:12→20:18)
--- NOTE | 2023-01-11 13:15 | P.PN ---
Subjective Progress Note Date: 01/11/23 Principal diagnosis: IMPRESSIONS: Schizoaffective disorder bipolar type History of cannabis use disorder History of cocaine use disorder History of alcohol use disorder Nicotine dependence Subjective data: The patient was laying in bed with his sheets over his head Patient refused to cooperate and responded to some questions with grunts He denies any other issues or concerns and states that he is not interested in any further discussion He denies that he was suicidal or homicidal Patient remained very uncooperative Mental Status Exam: General Appearance: Patient appears to be tall, uncooperative wanting to sleep Behavior: Less cooperative today. [place]. Speech: Patient's speech is fluent and pressured. Monotone, monosyllabic responses Mood/Affect: Patient reports their mood is "ok", affect is congruent and constricted, Suicidality/Homicidality: Patient denies having any homicidal ideation intent or plan. Denies any suicidal ideations intent or plan Perceptions: Patient denies any visual hallucinations and denies any auditory hallucinations. Though content/process: concrete, monosyllable responses unable to assess any further. Memory and concentration: Unable to assess Judgment and insight: Chronically poor, improving mildly IMPRESSIONS: Schizoaffective disorder bipolar type History of cannabis use disorder History of cocaine use disorder History of alcohol use disorder Nicotine dependence PLAN: -Patient is admitted under involuntary status to [facility] for stabilization of psychiatric symptoms and safety. Patient is currently on an active treatment order which expires 09/11/2023. -Medications : Prolixin D 50 mg IM q7days, last dose was given on 01/06 and next dose will be due on 01/13. 10 mg BID of Zyprexa for adjunct/insomnia scheduled, IF patient refuses then used to receive IM as per court order -Ativan and Haldol PRN for agitation/aggression -NRT - nicotine patch - on board for discharge planning. Encourage patient to participate in groups to work on coping skills. ACT came onto unit to assess patient and compare to baseline and claims that he was delusional and uncooperative with them. patient is improving mildly compared to yesterday and less psychotic. will continue to monitor over the weekend then prepare for discharge early next week and cocoridnate with act team for closer f/u Rashid Coats M.D. 01/11/2023 Objective - Vital Signs Vital signs: Vital Signs Temp 98 F 01/02/23 17:18 Pulse 118 H 01/02/23 17:18 Resp 20 01/02/23 17:18 BP 126/65 01/02/23 17:18 Pulse Ox 98 01/02/23 17:18 FiO2
[2023-01-12] MEDS: OLANZapine 10 MG TAB PO SCH ×2 (10:11→21:24)
--- NOTE | 2023-01-12 10:23 | P.PN ---
Subjective Progress Note Date: 01/12/23 Principal diagnosis: IMPRESSIONS: Schizoaffective disorder bipolar type History of cannabis use disorder History of cocaine use disorder History of alcohol use disorder Nicotine dependence Subjective data: The patient was laying in bed with his sheets over his head Patient refused to cooperate and responded to some questions with grunts He denies any other issues or concerns and states that he is not interested in any further discussion He denies that he was suicidal or homicidal Patient remained very uncooperative Today's interaction was no different than his today's interaction Mental Status Exam: General Appearance: Patient appears to be tall, uncooperative wanting to sleep Behavior: Less cooperative today. [place]. Speech: Patient's speech is fluent and pressured. Monotone, monosyllabic responses Mood/Affect: Patient reports their mood is "ok", affect is congruent and constricted, Suicidality/Homicidality: Patient denies having any homicidal ideation intent or plan. Denies any suicidal ideations intent or plan Perceptions: Patient denies any visual hallucinations and denies any auditory hallucinations. Though content/process: concrete, monosyllable responses unable to assess any further. Memory and concentration: Unable to assess Judgment and insight: Chronically poor, improving mildly IMPRESSIONS: Schizoaffective disorder bipolar type History of cannabis use disorder History of cocaine use disorder History of alcohol use disorder Nicotine dependence PLAN: -Patient is admitted under involuntary status to [facility] for stabilization of psychiatric symptoms and safety. Patient is currently on an active treatment order which expires 09/11/2023. -Medications : Prolixin D 50 mg IM q7days, last dose was given on 01/06 and next dose will be due on 01/13. 10 mg BID of Zyprexa for adjunct/insomnia scheduled, IF patient refuses then used to receive IM as per court order -Ativan and Haldol PRN for agitation/aggression -NRT - nicotine patch - on board for discharge planning. Encourage patient to participate in groups to work on coping skills. ACT came onto unit to assess patient and compare to baseline and claims that he was delusional and uncooperative with them. patient is improving mildly compared to yesterday and less psychotic. will continue to monitor over the weekend then prepare for discharge early next week and cocoridnate with act team for closer f/u Rashid Coats M.D. 01/12/2023 Objective - Vital Signs Vital signs: Vital Signs Temp 98 F 01/02/23 17:18 Pulse 118 H 01/02/23 17:18 Resp 20 01/02/23 17:18 BP 126/65 01/02/23 17:18 Pulse Ox 98 01/02/23 17:18 FiO2
--- NOTE | 2023-01-13 09:28 | P.PN ---
Progress Note - Text Progress Note Date: 01/13/23 Interval History: Patient was seen laying in bed this morning and was awoken agreeable to stick to her either. Patient states that he has been taking the medications and appears to be less delusional and less hyperverbal. He claims that he is doing "okay" and was hesitant when asked if there was any issues over the weekend. He claims that he did acknowledge that needs to coordinate with the act team before discharge. Patient was directable today and more appropriate. he was less hostile with technical writer. He appears to be mildly improving in terms of his judgment and also insight. Less religiously preoccupied. no pressured speech, or flight of ideas. Patient has mildly improving hygiene and grooming. He denies any depression or anxiety at this time. At this time patient denies any suicidal or homical ideations, intent or plan. Patient denies any visual hallucinations or auditory hallucinations. continues to mainly isolate in his room. Mental Status Exam: General Appearance: Patient appears to be tall, improving appearance, balding stated age is alert, or directable today Patient appears to have improving hygiene and grooming. Behavior: Patient is living in that without any agitated behavior. More cooperative today. [place]. Speech: Patient's speech is fluent and pressured. Monotone, rambling. Mood/Affect: Patient reports their mood is "ok", affect is congruent and constricted, mildly improving. Suicidality/Homicidality: Patient denies having any homicidal ideation intent or plan. Denies any suicidal ideations intent or plan Perceptions: Patient denies any visual hallucinations and denies any auditory hallucinations. Though content/process: concrete, rambling less, less religiously preoccupied. more future oriented. Memory and concentration: alert and oriented x3 Judgment and insight: Chronically poor, improving mildly IMPRESSIONS: Schizoaffective disorder bipolar type History of cannabis use disorder History of cocaine use disorder History of alcohol use disorder Nicotine dependence PLAN: -Patient is admitted under involuntary status to [facility] for stabilization of psychiatric symptoms and safety. Patient was not agreeable to sign the medication consent form. Patient is currently on an active treatment order which expires 09/11/2023. -Medications : Prolixin D 50 mg IM q7days, last dose was given on 01/06 and next dose will be due on 01/13. 10 mg BID of Zyprexa for adjunct/insomnia scheduled, IF patient refuses then used to receive IM as per court order -Ativan and Haldol PRN for agitation/aggression -NRT - nicotine patch -SW on board for discharge planning. Encourage patient to participate in groups to work on coping skills. patient is improving mildly in terms of his psychotic sx however continues to isolate and has fairly poor level of insight/judgment. he agreeable to take the oral meds at this time, will continue to monitor. will coordinate with act team for a discharge back home safely on friday due to the holiday and coordination of care as he is high risk for rehospitalization.
[2023-01-13] MEDS ORDERED: fluPHENAZine DECANOATE 25 MG/ML 5ML MDV IM SCH (10:00)
[2023-01-13] MEDS: OLANZapine 10 MG TAB PO SCH ×2 (10:38→20:22)
[2023-01-14 06:55] VITALS: BP 104/61; RESP 16; TEMP 98.3
[2023-01-14] MEDS: OLANZapine 10 MG TAB PO SCH (09:26)
--- NOTE | 2023-01-14 10:34 | P.PN ---
Progress Note - Text Progress Note Date: 01/14/23 Interval History: Patient was seen laying in bed this morning and was agreeable to speak to specification writer today. Patient was seen up earlier for breakfast and also in line getting his medications. He states that he is taking his medications, continued to be fairly concrete. He answered questions appropriately, not endorsing any delusions or paranoia today. Things that he is feeling tired this morning after taking his medication. He appears to be mildly improving in terms of his judgment and also insight. She has not religiously preoccupied today. no pressured speech, or flight of ideas. Patient has mildly improving hygiene and grooming. He denies any depression or anxiety at this time. At this time patient denies any suicidal or homical ideations, intent or plan. Patient denies any visual hallucinations or auditory hallucinations. continues to mainly isolate in his room. Mental Status Exam: General Appearance: Patient appears to be tall, improving appearance, balding stated age is alert, or directable today Patient appears to have improving hygiene and grooming. Behavior: Patient is living in that without any agitated behavior. cooperative today. [place]. Speech: Patient's speech is fluent and pressured. Monotone Mood/Affect: Patient reports their mood is "good", affect is congruent and constricted, mildly improving. Suicidality/Homicidality: Patient denies having any homicidal ideation intent or plan. Denies any suicidal ideations intent or plan Perceptions: Patient denies any visual hallucinations and denies any auditory hallucinations. Though content/process: concrete, not religiously preoccupied. more future oriented. Memory and concentration: alert and oriented x3 Judgment and insight: Chronically poor, improving mildly IMPRESSIONS: Schizoaffective disorder bipolar type History of cannabis use disorder History of cocaine use disorder History of alcohol use disorder Nicotine dependence PLAN: -Patient is admitted under involuntary status to [facility] for stabilization of psychiatric symptoms and safety. Patient was not agreeable to sign the medication consent form. Patient is currently on an active treatment order which expires 09/11/2023. -Medications : Prolixin D 50 mg IM q7days, last dose was given on 01/13, next dose will be due on 01/20. decrease Zyprexa PO to 10 mg QHS for adjunct/insomnia scheduled, IF patient refuses then used to receive IM as per court order -Ativan and Haldol PRN for agitation/aggression -NRT - nicotine patch -SW on board for discharge planning. Encourage patient to participate in groups to work on coping skills. patient is improving mildly in terms of his psychotic sx however continues to isolate and has fairly poor level of insight/judgment. he agreeable to take the oral meds at this time, will continue to monitor. will coordinate with act team for a discharge back home safely on friday due to the holiday and coordination of care as he is high risk for rehospitalization.
[2023-01-14] MEDS ORDERED: OLANZapine 10 MG VIAL IM PRN (21:00)
[2023-01-14] MEDS ORDERED: OLANZapine 10 MG TAB PO SCH (21:00)
--- NOTE | 2023-01-15 10:48 | P.DS ---
Providers Date of admission: 01/02/23 22:07 Expected date of discharge: 01/15/23 Attending physician: Rizwan Rodney MD Consults: 01/02/23 22:08 Consult Physician Routine Consulting Provider: [facility] Consult Reason/Comments: H&P Do you want consulting provider notified?: Yes Primary care physician: Stated None - Discharge Diagnosis(es) (1) Schizoaffective disorder, bipolar type Current Visit: Yes Status: Acute Priority: High (2) History of cannabis abuse Current Visit: Yes Status: Acute Priority: Low (3) History of cocaine abuse Current Visit: Yes Status: Acute Priority: Low (4) History of alcohol abuse Current Visit: Yes Status: Acute Priority: Low (5) Nicotine dependence Current Visit: Yes Status: Acute Priority: Low Hospital Course: Admission HPI: Admission note was completed by director underwriter sales "Patient is a 47-year-old male with a history of schizoaffective disorder bipolar type, currently on a year- long mental health treatment in order which expires in 09/11/2023, he apparently has a guardian and lives alone in an apartment. Patient presented to the hospital yesterday for psychiatric evaluation. Apparently patient was agitated and psychotic and brought in by [facility]. Patient is currently being followed by the activity, he is on a year-long court order for mental health treatment, which expires in 09/11/2023. Patient has a significant chronic history of mental illness including schizoaffective disorder and polysubstance abuse. Patient is being seen by [facility] his psychiatrist is Dr Mosley. Patient is currently on Prolixin D 50 mg IM every weekly, last dose was given on 12/31 and next dose will be due on 01/06. Patient was admitted involuntarily on a mental health treatment in order to the unit. Patient was seen by director underwriter sales this morning coming out of his room. Patient appeared to have a disheveled appearance and pacing the hallways quickly. Copying Machine Mechanic approached the patient and patient stopped abruptly and had an intense stare. He was fairly delusional, rambling and illogical. He spoke about the "illuminati" and also the pharma companies conspiring against him to take medications and asked director underwriter sales if he was part of the "illuminati". he was also somewhat relgiiously preoccupied and asked director underwriter sales if he beleived in God and was a jainism. Patient denies any depression or anxiety. He was fairly concrete with his answers. He denies any auditory or visual hallucinations. Denies any suicidal or homicidal ideations intent or plan. He denied any problems with sleep or appetite. He appeared to have very poor impulse control, poor understanding of his need for treatment. He did have flight of ideas and racing thoughts. When director underwriter sales asked him about his medications patient stated back "Im not taking any of your pills" then proceeded to walk away and refused to answer any other quesiton. Patient was not able to answer any questions related to substance use and did not provide a urine drug screen. Patient apparently does have a history of cannabis use, cocaine use and also alcohol use according to [facility] records. Patient smokes cigarettes daily." Hospital course: Upon admission to the unit patient was [admitted involuntarily on an active treatment order for mental health treatment. Patient was initially fairly isolative and was bizarre, psychotic and delusional however with treatment she got along well with other patients on the unit and followed unit protocol. Patient mainly To himself during most of the hospitalization. Patient required Im medications due to refusing PO meds. Patient was started on and continued on his weekly Prolixin D 50 mg IM, last dose was given on 01/13 and next dose will be due on 01/20. patient was also started on zyprexa 10 mg bid which was then reduced to 10 mg qhs for psychosis/sleep. Patient was also seen by medical team for history and physical exam. Throughout the course of the hospitalization patient gradually improved with regards to mood, anxiety, psychosis, dleusions/hallucinations, sleep and returned back to their baseline level of functioning. On the day of discharge patient denied any suicidal or homicidal ideations intent or plan denied any auditory or visual hallucinations. Patient endorsed wanting to live for his health and to go home again. The patient denie d any access to guns or weapons. Patient denied any paranoia and did not endorse any delusions. Patient does have a history of significant history of substance abuse and was counseled on abstaining from all substances including alcohol and marijuana. Patient was also counseled on the medications and need for regular compliance and was encouraged to follow-up with their outpatient appointment for mental health and also for primary care. Patient will be discharged today back to his apartment with ACT team folowing closely. Mental status exam: General Appearance: Patient appears to have longer hair, balding, stated age is alert, pleasant, and attempts to be cooperative. Patient is in no acute distress and has improved hygiene and grooming Behavior: Patient is calmly seated without any agitated behavior. Speech: Patient's speech is fluent and nonpressured. concrete Mood/Affect: Patient reports their mood is "ok", affect is congruent Suicidality/Homicidality: Patient denies having any suicidal or homicidal ideation intent or plan. Perceptions: Patient denies any auditory or visual hallucinations. Though content/process: There is no evidence of any delusional thought content a nd thought process is linear and goal-directed. concrete. Memory and concentration: AOX3, grossly intact for the purposes of this session. Can spell "WORLD" backwards correctly. Judgment and insight: chronically poor, however has improved with guarded prognosis Impression: Schizoaffective disorder bipolar type History of cocaine abuse History of alcohol abuse History of cannabis abuse Nicotine dependence Plan: -Continue with discharge today as patient has improved and stabilized psychiatrically and is not currently an imminent threat to himself and/or others. Patient will remain at chronically elevated risk for harm to self and/or others due to his impulsivity and chronically limited/poor insight/judgment. -Continue medications: Continue with weekly Prolixin D 50 mg IM, last dose given on 01/13 and next dose will be due on 01/20. Continue with Zyprexa 10 mg daily at bedtime for psychosis/sleep/mood stabilization. -Patient was counseled on the need for medication compliance and appropriate follow-up at mental health and also primary care for medical issues. Patient verbalized understanding and agreed. -Social work to help Dee patient's discharge today back to his apartment, he will be followed and monitored closely by act team. Social work also to arrange for patients follow up appointments with [facility] for psychiatric care along with follow up with primary care provider. -Patient counseled on abstaining from recreational drugs and marijuana and alcohol. Was informed/educated on the adverse effects on their physical and mental health. Patient verbally agreed and understood. -Patient was instructed to return to the hospital or seek immediate medical care if their psychiatric or medical symptoms do worsen or reoccur. Allergies Allergy/AdvReac Type Severity Reaction Status Date / Time clozapine [From Clozaril] Allergy Unknown Verified 01/02/23 19:02 paliperidone [From Invega] Allergy Unknown Verified 01/02/23 19:02 Laboratory Results Coronavirus (PCR) Not Detected (Not Detectd) 01/02/23 20:28 Vital Signs Temp 98.3 F 01/14/23 06:54 Pulse 118 H 01/02/23 17:18 Resp 16 01/14/23 06:54 BP 104/61 01/14/23 06:54 Pulse Ox 95 01/14/23 06:54 FiO2 Patient Condition at Discharge: Stable Plan - Discharge Summary New Discharge Prescriptions: New fluPHENAZine decanoate [Prolixin Decanoate] 50 mg IM Q7D #1 ml OLANZapine [ZyPREXA] 10 mg PO HS 30 Days #30 tab Discontinued fluPHENAZine decanoate [Prolixin Decanoate] 50 mg IM Q7D Discharge Medication List OLANZapine [ZyPREXA] 10 mg PO HS 30 Days #30 tab 01/15/23 [Rx] fluPHENAZine decanoate [Prolixin Decanoate] 50 mg IM Q7D #1 ml 01/15/23 [Rx] Follow up Appointment(s)/Referral(s): [facility] [Outside] - 01/15/23 1:00 pm (ACT team ) Joaquin Mosley MD [REFERRING] - 01/21/23 11:30 am (also appt 02/12/23 at 11am) None,Stated [Primary Care Provider] - 1-2 days Activity/Diet/Wound Care/Special Instructions: Avoid the use of street drugs and alcohol. Take all medications as prescribed. When you are in need of refills on your medications, please contact your medical provider and/or outpatient psychiatrist to have this done. Please go to [facility] outpatient appointments for aftercare treatment. If symptoms return or become worse, call the crisis line at and/or go to the nearest emergency room for evaluation. Discharge Disposition: HOME SELF-CARE
== END 2023-01-15 14:15 | disposition home or self-care (01) | DRG 885 ==
LOC: EC 16:26 → 3MHU 22:07
PROVIDERS: ADMIT Psychiatry & Neurology Psychiatry; ATTEND Psychiatry & Neurology Psychiatry
DX: F25.0 Schizoaffective disorder, bipolar type (principal); Z60.2 Problems related to living alone; R45.1 Restlessness and agitation; Z20.822 Contact with and (suspected) exposure to COVID-19; Z28.310 Unvaccinated for COVID-19; Z53.29 Procedure and treatment not carried out because of patient's decision for other reasons; Z71.3 Dietary counseling and surveillance; Z71.51 Drug abuse counseling and surveillance of drug abuser; Z71.89 Other specified counseling; F17.210 Nicotine dependence, cigarettes, uncomplicated; F14.11 Cocaine abuse, in remission; F12.11 Cannabis abuse, in remission; F10.11 Alcohol abuse, in remission; Z88.8 Allergy status to other drugs, medicaments and biological substances; Z79.899 Other long term (current) drug therapy
CPT/HCPCS: 82075; 87635; 99285